=== PATIENT | female | born 1930 | race African-American/Black ===

== ENCOUNTER 2017-06-24 14:33 | Inpatient (IN) | payer BC ==
[2017-06-24] MEDS ORDERED: NS 0.9% 1000 ML* 1,000 ML IV ONE (15:33)
[2017-06-24 16:05] LABS: Hematocrit 36 % (35-47); Hemoglobin 12.1 g/dl (12.0-16.0); Mean Corpuscular HGB Conc 33 g/dl (31-36); Mean Corpuscular Hemoglobin 29 pg (27-31); Mean Corpuscular Volume 87 fL (80-97); Mean Platelet Volume 8 um3 (7.4-10.4); Red Blood Count 4.17 10^6/ul (4.0-5.4); Red Cell Distribution Width 13 % (10.5-15); White Blood Count 15.2 10^3/ul (3.5-10.8)
[2017-06-24 16:18] LABS: Albumin 3.7 g/dL (3.2-5.2); BUN/Creatinine Ratio 16.9 (8-20); C Reactive Protein 101.86 mg/L (< 5.00); Calcium 9.7 mg/dL (8.6-10.3); EGFR Non-African American 43.5 (>60); Globulin 3.7 g/dL (2-4); Magnesium 1.9 mg/dL (1.9-2.7); Potassium 4.1 mmol/L (3.5-5.0); Total Bilirubin 0.4 mg/dL (0.2-1.0); Total Protein 7.4 g/dL (6.4-8.9)
[2017-06-24 16:56] LABS: Urine Bacteria Absent (Absent); Urine Bilirubin Negative (Negative); Urine Glucose Negative (Negative); Urine Nitrite Negative (Negative)
[2017-06-24] MEDS ORDERED: Acetaminophen TAB* 325 MG PO PRN (18:41)
--- NOTE | 2017-06-24 18:52 | ED ---
Tobias Ball Alfonso, scribed for Alberto Gonzalez MD on 06/24/17 at 1625 . Abdominal Pain/Female - HPI Summary HPI Summary: This patient is an 86 year old F presenting from [facility] to [facility] with a chief complaint of RLQ abdominal pain since 6 days ago. She states the pain is currently resolved. The patient rates the current pain 0/10 in severity. Symptoms aggravated by nothing. Symptoms alleviated by spontaneous resolution. 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 FINDINGS CONSISTENT WITH ACUTE APPENDICITIS WITH POSSIBLE RUPTURE OF THE APPENDIX. 2. 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 MILDLY ENLARGED RETROPERITONEAL LYMPH NODE POSSIBLY METASTATIC. ONCE THE PATIENT IS CLINICALLY ABLE CONSIDER A CONTRAST-ENHANCED STUDY FOR FURTHER EVALUATION AND STAGING. - History of Current Complaint Chief Complaint: EDAbdPain Stated Complaint: ABD PAIN Hx Obtained From: Patient Onset/Duration: Sudden Onset, Lasting Days - 6, Still Present Timing: Constant Severity Initially: Moderate Severity Currently: None Pain Intensity: 0 Pain Scale Used: 0-10 Numeric Location: Discrete At: RLQ Aggravating Factor(s): Nothing Alleviating Factor(s): Spontaneous Resolution Allergies/Adverse Reactions: Allergies Allergy/AdvReac Type Severity Reaction Status Date / Time Iodinated Diagnostic Agents Allergy Hives Verified 06/24/17 11:11 Home Medications: Home Medications Benazepril HCl 20 mg PO BID 06/24/17 [History Confirmed 06/24/17] Hydrochlorothiazide TAB* [Hydrodiuril TAB*] 25 mg PO DAILY 06/24/17 [History Confirmed 06/24/17] Levothyroxine TAB* [Synthroid TAB*] 50 mcg PO DAILY 06/24/17 [History Confirmed 06/24/17] Metoprolol Succinate XL TAB* [Toprol XL TAB*] 50 mg PO DAILY 06/24/17 [History Confirmed 06/24/17] Simvastatin (NF) [Zocor (NF)] 40 mg PO DAILY 06/24/17 [History Confirmed ] PMH/Surg Hx/FS Hx/Imm Hx Cardiovascular History: Reports: Hx Hypercholesterolemia, Hx Hypertension Sensory History: Denies: Hx Deafness Opthamlomology History: Denies: Hx Legally Blind - Cancer History Hx Chemotherapy: No Hx Radiation Therapy: No - Surgical History Surgery Procedure, Year, and Place: hysterectomy,tonsilectomy Infectious Disease History: No Infectious Disease History: Denies: Traveled Outside the [place] in Last 30 Days - Family History Known Family History: Positive: Other - CHF - Social History Alcohol Use: None Hx Substance Use: No Substance Use Type: Reports: None Hx Tobacco Use: No Smoking Status (MU): Unknown if Ever Smoked Review of Systems Negative: Fever Positive: Abdominal Pain - RLQ All Other Systems Reviewed And Are Negative: Yes Physical Exam Triage Information Reviewed: Yes Vital Signs On Initial Exam: Initial Vitals Temp Pulse Resp BP Pulse Ox 98.3 F 101 18 148/53 97 06/24/17 14:34 06/24/17 14:34 06/24/17 14:34 06/24/17 14:34 06/24/17 14:34 Vital Signs Reviewed: Yes Appearance: Positive: Well-Appearing, No Pain Distress Skin: Positive: Warm, Skin Color Reflects Adequate Perfusion, Dry Head/Face: Positive: Normal Head/Face Inspection Eyes: Positive: Normal ENT: Positive: Normal ENT inspection Neck: Positive: Supple, Nontender Respiratory/Lung Sounds: Positive: Clear to Auscultation, Breath Sounds Present Cardiovascular: Positive: RRR Abdomen Description: Positive: Soft, Other: - RLQ tenderness moderate Bowel Sounds: Positive: Present Musculoskeletal: Positive: Normal Neurological: Positive: Normal, Sensory/Motor Intact, Alert, Oriented to Person Place, Time, CN Intact II-III Psychiatric: Positive: Affect/Mood Appropriate Diagnostics - Vital Signs Vital Signs Temp Pulse Resp BP Pulse Ox 06/24/17 15:15 98.4 F 92 16 136/75 97 06/24/17 14:34 98.3 F 101 18 148/53 97 - Laboratory Lab Results: Lab Results 06/24/17 06/24/17 06/24/17 Range/Units 15:55 15:55 15:55 WBC (3.5-10.8) 10^3/ul RBC (4.0-5.4) 10^6/ul Hgb (12.0-16.0) g/dl Hct (35-47) % MCV (80-97) fL MCH (27-31) pg MCHC (31-36) g/dl RDW (10.5-15) % Plt Count (150-450) 10^3/ul MPV (7.4-10.4) um3 Neut % (Auto) (38-83) % Lymph % (Auto) (25-47) % [place] % (Auto) (1-9) % Eos % (Auto) (0-6) % Baso % (Auto) (0-2) % Absolute Neuts (auto) (1.5-7.7) 10^3/ul Absolute Lymphs (auto) (1.0-4.8) 10^3/ul Absolute Monos (auto) (0-0.8) 10^3/ul Absolute Eos (auto) (0-0.6) 10^3/ul Absolute Basos (auto) (0-0.2) 10^3/ul Absolute Nucleated RBC 10^3/ul Nucleated RBC % INR (Anticoag Therapy) 1.14 H (0.89-1.11) Sodium 130 L (133-145) mmol/L Potassium 4.1 (3.5-5.0) mmol/L Chloride 94 L (101-111) mmol/L Carbon Dioxide 26 (22-32) mmol/L Anion Gap 10 (2-11) mmol/L BUN 20 (6-24) mg/dL Creatinine 1.18 H (0.51-0.95) mg/dL Est GFR ( Amer) 56.0 (>60) Est GFR (Non-Af Amer) 43.5 (>60) BUN/Creatinine Ratio 16.9 (8-20) Glucose 124 H (70-100) mg/dL Lactic Acid (0.5-2.0) mmol/L Calcium 9.7 (8.6-10.3) mg/dL Magnesium 1.9 (1.9-2.7) mg/dL Total Bilirubin 0.40 (0.2-1.0) mg/dL AST 44 H (13-39) U/L ALT 67 H (7-52) U/L Alkaline Phosphatase 102 (34-104) U/L Total Creatine Kinase 44 (10-223) U/L Troponin I Pending C-Reactive Protein 101.86 H (< 5.00) mg/L Total Protein 7.4 (6.4-8.9) g/dL Albumin 3.7 (3.2-5.2) g/dL Globulin 3.7 (2-4) g/dL Albumin/Globulin Ratio 1.0 (1-3) Amylase 59 (29-103) U/L Lipase 57 (11.0-82.0) U/L Blood Type Pending Antibody Screen Pending 06/24/17 06/24/17 Range/Units 15:55 15:55 WBC 15.2 H (3.5-10.8) 10^3/ul RBC 4.17 (4.0-5.4) 10^6/ul Hgb 12.1 (12.0-16.0) g/dl Hct 36 (35-47) % MCV 87 (80-97) fL MCH 29 (27-31) pg MCHC 33 (31-36) g/dl RDW 13 (10.5-15) % Plt Count 291 (150-450) 10^3/ul MPV 8 (7.4-10.4) um3 Neut % (Auto) 82.6 (38-83) % Lymph % (Auto) 9.9 L (25-47) % [place] % (Auto) 6.7 (1-9) % Eos % (Auto) 0.2 (0-6) % Baso % (Auto) 0.6 (0-2) % Absolute Neuts (auto) 12.6 H (1.5-7.7) 10^3/ul Absolute Lymphs (auto) 1.5 (1.0-4.8) 10^3/ul Absolute Monos (auto) 1.0 H (0-0.8) 10^3/ul Absolute Eos (auto) 0 (0-0.6) 10^3/ul Absolute Basos (auto) 0.1 (0-0.2) 10^3/ul Absolute Nucleated RBC 0 10^3/ul Nucleated RBC % 0 INR (Anticoag Therapy) (0.89-1.11) Sodium (133-145) mmol/L Potassium (3.5-5.0) mmol/L Chloride (101-111) mmol/L Carbon Dioxide (22-32) mmol/L Anion Gap (2-11) mmol/L BUN (6-24) mg/dL Creatinine (0.51-0.95) mg/dL Est GFR ( Amer) (>60) Est GFR (Non-Af Amer) (>60) BUN/Creatinine Ratio (8-20) Glucose (70-100) mg/dL Lactic Acid 0.9 (0.5-2.0) mmol/L Calcium (8.6-10.3) mg/dL Magnesium (1.9-2.7) mg/dL Total Bilirubin (0.2-1.0) mg/dL AST (13-39) U/L ALT (7-52) U/L Alkaline Phosphatase (34-104) U/L Total Creatine Kinase (10-223) U/L Troponin I C-Reactive Protein (< 5.00) mg/L Total Protein (6.4-8.9) g/dL Albumin (3.2-5.2) g/dL Globulin (2-4) g/dL Albumin/Globulin Ratio (1-3) Amylase (29-103) U/L Lipase (11.0-82.0) U/L Blood Type Antibody Screen Result Diagrams: 06/24/17 15:55 06/24/17 15:55 Lab Statement: Any lab studies that have been ordered have been reviewed, and results considered in the medical decision making process. - EKG 1624 Cardiac Rate: NL - bpm 72 EKG Rhythm: Sinus Rhythm EKG Interpretation: 1ST DEGREE BLOCK. Abdominal Pain Fem Course/Dx - Course Course Of Treatment: Ms. Worrell was found by her PMD to have a ruptured appendicitis. She was sent in and was found to be very stable. Labs were obtained, she was given IV Zosyn and Surgery was consulted. - Diagnoses Provider Diagnoses: Ruptured appendicitis - Provider Notifications Discussed Care Of Patient With: Raul Portillo Time Discussed With Above Provider: 15:50 Instructed by Provider To: Other - Consulted Dr. Portillo (surgeon) whose PA will see the pt in the ED. Consulted Dr. Mandel (hospitalist) at 1717 who agrees to admit the patient. Discharge - Discharge Plan Condition: Stable Disposition: ADMITTED TO [facility] documentation as recorded by the Tobias johns Alfonso accurately reflects the service I personally performed and the decisions made by , Alberto Gonzalez MD.
[2017-06-24] MEDS: D5NS 0.9% 1000 ML BAG* 1,000 ML IV SCH (20:07)
[2017-06-24] MEDS ORDERED: Lisinopril TAB* 10 MG PO SCH (21:00)
[2017-06-24] MEDS: MELOXICAM 7.5 MG PO PRN (22:32)
[2017-06-24] MEDS: SYSTANE EYE LEFT EYE SCH (22:33)
[2017-06-24] MEDS: BENAZEPRIL 20 MG PO SCH (22:33)
[2017-06-25] MEDS: LEVOTHYROXINE 50 MCG PO SCH (06:06)
[2017-06-25] MEDS: D5NS 0.9% 1000 ML BAG* 1,000 ML IV SCH ×2 (08:27→21:57)
[2017-06-25] MEDS: METOPROLOL SUCCINATE 50 MG PO SCH (09:18)
[2017-06-25] MEDS: BENAZEPRIL 20 MG PO SCH ×2 (09:18→20:43)
[2017-06-25] MEDS: SYSTANE EYE LEFT EYE SCH ×5 (09:19→20:44)
[2017-06-25 10:44] LABS: Hematocrit 30 % (35-47); Mean Corpuscular HGB Conc 33 g/dl (31-36); Mean Corpuscular Hemoglobin 29 pg (27-31); Mean Corpuscular Volume 87 fL (80-97); Mean Platelet Volume 8 um3 (7.4-10.4); Red Blood Count 3.45 10^6/ul (4.0-5.4); Red Cell Distribution Width 13 % (10.5-15); White Blood Count 13.3 10^3/ul (3.5-10.8)
[2017-06-25] MEDS: MELOXICAM 7.5 MG PO PRN (11:04)
[2017-06-26] MEDS: LEVOTHYROXINE 50 MCG PO SCH (06:04)
--- NOTE | 2017-06-26 07:48 | PN ---
Progress Note - Progress Note Date of Service: 06/26/17 Note: Surgery Ms. Worrell reports she had a large BM this morning. She feels better overall. Vital Signs 06/25/17 06/25/17 06/25/17 08:00 12:37 15:42 Temperature 99.1 F 99.1 F Pulse Rate 72 80 Respiratory 15 15 20 Rate Blood Pressure 139/56 141/49 (mmHg) O2 Sat by Pulse 99 98 Oximetry 06/25/17 06/25/17 06/25/17 16:12 19:15 19:23 Temperature 99.1 F 99.3 F Pulse Rate 80 96 Respiratory 20 20 16 Rate Blood Pressure 160/62 150/54 (mmHg) O2 Sat by Pulse 98 98 Oximetry 06/26/17 06/26/17 00:01 03:54 Temperature 100.0 F 99.4 F Pulse Rate 77 82 Respiratory 16 16 Rate Blood Pressure 123/43 120/33 (mmHg) O2 Sat by Pulse 95 96 Oximetry Abd: protruberant, non-tender, no masses appreciated. Intake & Output 06/25/17 06/26/17 06/26/17 22:59 06:59 14:59 Intake Total 1576 205 Output Total 450 450 Balance 1126 -245 Intake: IV Fluids 826 D5W NS (0.9%) 826 IVPB 100 105 Oral 650 100 Output: Urine 450 450 Other: # Bowel Movements 0 Laboratory Results - last 24 hr 06/25/17 09:34 WBC 13.3 H RBC 3.45 L Hgb 10.0 L Hct 30 L MCV 87 MCH 29 MCHC 33 RDW 13 Plt Count 260 MPV 8 Neut % (Auto) 74.8 Lymph % (Auto) 14.9 L [place] % (Auto) 9.3 H Eos % (Auto) 0.5 Baso % (Auto) 0.5 Absolute Neuts (auto) 9.9 H Absolute Lymphs (auto) 2.0 Absolute Monos (auto) 1.2 H Absolute Eos (auto) 0.1 Absolute Basos (auto) 0.1 Absolute Nucleated RBC 0.01 Nucleated RBC % 0.1 A/P: Clinically improving; await labs this morning, but I anticipate continued abx will be appropirate.
[2017-06-26 08:40] LABS: Hematocrit 29 % (35-47); Hemoglobin 9.4 g/dl (12.0-16.0); Mean Corpuscular HGB Conc 33 g/dl (31-36); Mean Corpuscular Hemoglobin 29 pg (27-31); Mean Corpuscular Volume 87 fL (80-97); Mean Platelet Volume 8 um3 (7.4-10.4); Red Blood Count 3.29 10^6/ul (4.0-5.4); Red Cell Distribution Width 14 % (10.5-15); White Blood Count 13.4 10^3/ul (3.5-10.8)
[2017-06-26] MEDS: BENAZEPRIL 20 MG PO SCH ×2 (09:44→20:30)
[2017-06-26] MEDS: SYSTANE EYE LEFT EYE SCH ×4 (09:44→20:30)
[2017-06-26] MEDS: METOPROLOL SUCCINATE 50 MG PO SCH (09:54)
[2017-06-26 11:22] LABS: Albumin 2.8 g/dL (3.2-5.2); BUN/Creatinine Ratio 7.3 (8-20); C Reactive Protein 68.43 mg/L (< 5.00); Calcium 8.2 mg/dL (8.6-10.3); EGFR African American 60.7 (>60); EGFR Non-African American 47.2 (>60); Globulin 2.3 g/dL (2-4); Potassium 3.7 mmol/L (3.5-5.0); Total Bilirubin 0.3 mg/dL (0.2-1.0); Total Protein 5.1 g/dL (6.4-8.9)
[2017-06-26] MEDS: D5NS 0.9% 1000 ML BAG* 1,000 ML IV SCH (12:33)
[2017-06-26] MEDS: MELOXICAM 7.5 MG PO PRN (13:12)
--- NOTE | 2017-06-27 01:36 | HP ---
CC: Dr. Luiza Casarez, physician at Dr. Genia Pruitt's office * ADMISSION HISTORY AND PHYSICAL: DATE OF ADMISSION: 06/24/17 ATTENDING PHYSICIAN: Dr. Raul Portillo * (DICTATED BY CHANTELL DYER) CHIEF COMPLAINT: Possible ruptured appendicitis. HISTORY OF PRESENT ILLNESS: This is an 86-year-old female who began experiencing abdominal pain last Tuesday and Tuesday. She describes her pain in the right lower quadrant and associated initially with watery diarrhea. Pain seemed to move upward and was associated with anorexia though she denies nausea, vomiting, fever, or chills. She had not had any prior similar episodes. She had not had any significant symptoms. She felt that her pain improved significantly on Tuesday and then since that time, she has mostly felt gassy. She presented to her primary care provider on 06/23/17. Lab work was apparently done and she was subsequently sent for a CT scan of the abdomen and pelvis, which was performed this morning at [facility]. Based on those findings (see below) the patient was advised to come to the emergency department. At the present time she denies significant pain. She feels a bit gassy and has been limiting her diet. She otherwise has no additional complaints. She has not had a bowel movement for a few days. She has been passing flatus. She has had previous EGD and colonoscopy in 2013 with findings including gastric erosions and diverticulosis respectively. She did not have any history of diverticulitis. Her only previous abdominal surgery was a TIGIST with BSO for benign disease many years ago. PAST MEDICAL HISTORY: Hypertension, hyperlipidemia, hypothyroidism. 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 She denies history of heart disease, diabetes, or cancer. PAST SURGICAL HISTORY: TIGIST with BSO, tonsillectomy remotely. CURRENT MEDICATIONS: 1. Levothyroxine 50 mcg once daily. 2. Benazepril 20 mg b.i.d. 3. Metoprolol extended release 50 mg q. day. 4. Systane eye drops 1 drop each eye once daily. 5. Simvastatin 40 mg q. day. 6. Hydrochlorothiazide 25 mg q. day. 7. Meloxicam 7.5 mg q. day p.r.n. for arthritis pain. DRUG ALLERGIES: IV CONTRAST (flushing). FAMILY HISTORY: Noncontributory in terms of anesthesia problems, bleeding, or clotting disorders. SOCIAL HISTORY: The patient lives alone in her own apartment. She moved here from the [place] after [place] to be near her family. She is fairly active and participates in S[employer] 3 days a week and other days alternates between weight training and lito chi. She quit smoking in the early 80s. She drinks on an average 1 glass of wine per day. REVIEW OF SYSTEMS: General: No recent constitutional symptoms other than per the HPI, her weight has been stable. Cardiovascular: No history of chest pain , palpitations, [place], or angina. Respiratory: No history of asthma, chronic cough, or shortness of breath. GI: As above her HPI, no additions. : No symptoms of hematuria or increased frequency. Endocrine: She is on thyroid replacement. PHYSICAL EXAMINATION GENERAL: Well-nourished, well-developed, elderly woman, in no acute distress. VITAL SIGNS: Height 5 feet 6 inches, weight 137 pounds, temperature 98.3, blood pressure 148/53, pulse 101, respirations 18, and room air saturation 97%. HEENT: She has ptosis of the left eyelid and left eye shows corneal opacity. Right eye is reactive to light, EOMs intact. No conjunctival pallor. Oropharynx, mucous membranes are dry. No intraoral lesions. NECK: No lymphadenopathy, thyromegaly, or masses. LUNGS: Clear to auscultation with a few crackles at the left lung base. HEART: Regular rate and rhythm. No murmur appreciated. ABDOMEN: Bowel sounds present, soft, negligible tenderness in the right lower quadrant. No palpable masses or organomegaly. EXTREMITIES: No edema. GENITALIA: Not done. RECTAL: Not done. BACK: No spinous process or CVA tenderness. NEUROLOGIC: Grossly intact. SKIN: Warm and dry. No suspicious rashes or lesions noted. DIAGNOSTIC STUDIES/LAB DATA: Of note, white blood cell count 15,200, hemoglobin 12.1. Electrolytes: Sodium 130, potassium 4.1, chloride 94, glucose 124. AST 44, ALT 67. CRP 102 (down from 128 yesterday). Amylase and lipase were normal. TSH was normal. She has a normal lactic acid at 0.9. Urinalysis shows 1+ blood, 3+ leukocyte esterase. CT scan of the abdomen and pelvis shows a markedly distended appendix with an ill- defined wall and an appendicolith with stranding in the surrounding mesenteric fat as well as free fluid. In addition, there is a finding of a 10.2 x 10.7 x 7.1 cm right renal mass, which appears suspicious for carcinoma. IMPRESSION: 1. Likely "missed" appendicitis. 2. Right renal mass concerning for carcinoma. PLAN: She was seen and examined by Dr. Portillo. She will be admitted for IV antibiotics with no immediate plan for appendectomy. In fact, she was informed that appendectomy may not be required at any point in time if she continues to do well clinically with conservative management. She will also need consults from Urology and/or Oncology and those will be arranged though she may be able to complete further workup as an outpatient. CHANTELL DYER [id number]/TUSHAR #: [id number] TYRESE
[2017-06-27] MEDS: D5NS 0.9% 1000 ML BAG* 1,000 ML IV SCH ×2 (04:58→19:19)
[2017-06-27] MEDS: LEVOTHYROXINE 50 MCG PO SCH (05:50)
[2017-06-27] MEDS: BENAZEPRIL 20 MG PO SCH ×2 (08:51→19:43)
[2017-06-27] MEDS: SYSTANE EYE LEFT EYE SCH ×4 (08:51→22:51)
[2017-06-27] MEDS: METOPROLOL SUCCINATE 50 MG PO SCH (08:51)
--- NOTE | 2017-06-27 11:39 | RAD ---
Indication: Renal cell cancer. CT of the chest performed without IV contrast. No prior study is available for comparison. Coronal and sagittal reconstructed images were obtained. Inferior thyroid lobes demonstrates calcified nodule in the lower pole of the left lobe as well as in the lower pole of the right lobe. Small 3 to 5 mm pretracheal, AP window lymph nodes are noted. The heart demonstrates coronary artery calcifications without evidence of pericardial effusion. The trachea and major bronchi appear patent. The lung naik demonstrate small pleural effusions. There is nonspecific triangular-shaped density likely representing some atelectasis measuring 4 mm in the right middle lobe. Scarring is noted in the superior segment of the left lower lobe. No focal nodules are noted. The visualized abdominal organs demonstrate no definite focal lesions were visualized of the liver spleen and pancreas although they are not visualized entirely. No obvious bony abnormalities are identified. IMPRESSION: Nonspecific 4 mm right middle lobe triangle shaped density as well as some scarring in the superior segment of left lower lobe. Small bilateral pleural effusions are noted.
[2017-06-27 12:40] LABS: Total Iron Binding Capacity 213 mcg/dL (250-450); Transferrin 152 mg/dL (203-362)
[2017-06-27 12:43] LABS: Iron < 15 ug/dL (50-212)
[2017-06-27 12:54] LABS: Ferritin 186.3 ng/mL (11-307)
[2017-06-27 13:00] LABS: Vitamin B12 239 pg/mL (180-914)
--- NOTE | 2017-06-27 13:14 | CONS ---
CC: Dr. Casarez * CONSULTATION REPORT: DATE OF CONSULT: REFERRING PHYSICIAN: Dr. Portillo. PRIMARY CARE PHYSICIAN: Dr. Casarez. REASON FOR CONSULT: Renal mass. HISTORY OF PRESENT ILLNESS: This is an 86-year-old female who came in after she said she felt very, "blah" for approximately 1 week. She was really not eating anything and she was having on and off nausea and vomiting. Two days prior to admission, she had right lower quadrant pain associated with diarrhea. She denies any fevers or chills. She reports up until a week ago, she had been feeling quite well. Energy has been good, she exercises 3 times a week including Amy and lito chi. She had no prior episodes of pain. She denies any urinary symptoms, no hematuria. No change in either urine or bowel patterns up until this acute episode. She reports her weight has been stable though her appetite has been low for a week. On presentation to the emergency room, she had a CT scan of the abdomen and pelvis. The scan was notable for a distended appendix with an ill-defined wall, suggestive of a walled-off appendix. She was also noted to have a 10 x 10 x 7 cm renal mass on the right side. It was a noncontrast study. There was no clear regional lymphadenopathy. On the liver windows for the noncontrast study of the liver is clear and there are no lesions in the lung bases. Visualizing the bone windows, there is mild arthritis but no lytic or blastic lesions in the spine or pelvis. She is being followed by surgery and is being treated conservatively with IV antibiotics, to avoid intervention for the appendicitis. Medical Oncology consulted regarding the renal mass. PAST MEDICAL HISTORY: 1. Hypertension. 2. Hyperlipidemia. 3. Hypothyroidism. 4. 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 5. History of gastric erosions. 6. Diverticulosis. 7. Osteoarthritis. PAST SURGICAL HISTORY: TIGIST and BSO as well as history of tonsillectomy. MEDICATIONS: 1. Levothyroxine 50 mcg daily. 2. Benazepril 20 mg b.i.d. 3. Metoprolol extended release 50 mg a day. 4. Eye drops. 5. Simvastatin 40 mg a day. 6. Hydrochlorothiazide 25 mg a day. 7. Meloxicam 7.5 daily p.r.n. arthritis. ALLERGIES: IV CONTRAST causes flushing. FAMILY HISTORY: Heart disease and diabetes, but no cancers in the family. SOCIAL HISTORY: She lives alone. She has no children, but does have a support network in her nieces and nephews. Moved from [place] after [place] to be near her extended family. Remote history of smoking and drinks a glass of wine per day. REVIEW OF SYSTEMS: As noted above and otherwise 14-point review is negative. PHYSICAL EXAM: Temperature 98.8, T-max 100.6, BP 131/46, pulse 72, respirations 16, O2 sat 96%. HEENT: Trauma, left eye, and scarring. Right eye , pupil equal, round, reactive to light. Nodes: No supraclavicular, axillary, or inguinal lymphadenopathy. Lungs: Clear to auscultation. Heart: Regular rate and rhythm. S1, S2. No murmurs, rubs, or gallops. Abdomen: Distended. Mild left lower quadrant tenderness, good bowel sounds, no masses. No CVA tenderness. Extremities: Warm to the touch with good pulses. Skin: No overt lesions. Neurologic: Grossly nonfocal. Alert and oriented x3. DIAGNOSTIC STUDIES/LAB DATA: Hemoglobin 9.4, down from 12 on admission, likely secondary to hydration. MCV is 87, white count 13.4, platelets 258. Creatinine is 1.1, which is near her baseline, had been close to 1.5 on admission. Calcium is 8.2 with an albumin of 2.8, normal LFTs. UA shows +2 white blood cells, +[address] scan as noted above. ASSESSMENT AND PLAN: An 86-year-old female with extensive past medical history , but high functional status, presents with subacute appendicitis with abscess and a right renal mass. Highly suspicious for occult renal cell carcinoma. The renal mass has likely been there for some time as evidenced by size and lack of pain. Priority will be addressing the appendicitis before definitive treatment for her renal cell cancer. 1. Renal cell cancer. Treatment would be the standard approach. She has barrier to surgery at this time including the acute appendicitis, low albumin. I am hopeful that nutritional deficiency is related to her GI process and that she recovers fully with antibiotics. After the appendicitis has passed, she needs to be evaluated for a right nephrectomy. We discussed being seen by Dr. Thompson in [place] as well as the option for surgeons at [facility]. She is open to going out of town for surgery. 2. Chronic renal insufficiency. She has reduced creatinine clearance. We will need to check differential creatinine clearance prior to surgery to determine her postop renal function. I suspect the right kidney is minimally functional at this time. 3. Anemia. Could be secondary to iron deficiency or chronic disease. We will check iron studies and B12 as well as a serum transferrin receptor. 4. I would like to complete staging for renal cell cancer with a noncontrast CT of the chest. We will continue to follow during her hospitalization and then manage referral to Urologic Oncology after discharge. [id number]/[facility] #: [id number] TYRESE
[2017-06-27] MEDS: Loperamide CAP* 2 MG PO PRN ×2 (17:56→22:59)
[2017-06-27] MEDS: MELOXICAM 7.5 MG PO PRN (22:58)
[2017-06-28] MEDS: SYSTANE EYE LEFT EYE SCH ×2 (01:51→08:09)
[2017-06-28 05:51] LABS: Hematocrit 28 % (35-47); Hemoglobin 9.2 g/dl (12.0-16.0); Mean Corpuscular HGB Conc 34 g/dl (31-36); Mean Corpuscular Hemoglobin 29 pg (27-31); Mean Corpuscular Volume 88 fL (80-97); Mean Platelet Volume 8 um3 (7.4-10.4); Red Blood Count 3.13 10^6/ul (4.0-5.4); Red Cell Distribution Width 14 % (10.5-15)
[2017-06-28] MEDS: LEVOTHYROXINE 50 MCG PO SCH ×2 (06:00→06:04)
[2017-06-28 06:05] LABS: BUN/Creatinine Ratio 4.9 (8-20); C Reactive Protein 77.24 mg/L (< 5.00); Calcium 8.2 mg/dL (8.6-10.3); EGFR African American 66.2 (>60); EGFR Non-African American 51.5 (>60); Potassium 3.3 mmol/L (3.5-5.0)
[2017-06-28] MEDS: D5NS 0.9% 1000 ML BAG* 1,000 ML IV SCH ×2 (08:08→22:31)
[2017-06-28] MEDS: BENAZEPRIL 20 MG PO SCH ×2 (08:08→22:07)
[2017-06-28] MEDS: METOPROLOL SUCCINATE 50 MG PO SCH (09:56)
[2017-06-28] MEDS ORDERED: Iodixanol* (CONTRAST) 320 MG/ML 100 ML SDV IV ONE (10:44)
--- NOTE | 2017-06-28 12:24 | RAD ---
CLINICAL HISTORY: Follow-up of appendicitis, abscess COMPARISON: June 24, 2017 TECHNIQUE: Multiple contiguous axial CT scans were obtained of the abdomen and pelvis, without intravenous contrast enhancement. Coronal and sagittal multiplanar reformations are submitted for review. According to the technologist notes, the patient deferred intravenous contrast administration. FINDINGS: The study is limited by the lack of intravenous contrast. This limits evaluation of the solid organs and vasculature. LUNG BASES: There are trace bilateral pleural effusions. LIVER: The liver is normal in shape, size, contour, and attenuation. BILE DUCTS: There is no intrahepatic or extrahepatic biliary dilatation. GALLBLADDER: The gallbladder is normal, without pericholecystic inflammatory change. PANCREAS: The pancreas is normal, without mass or ductal dilatation. SPLEEN: Normal in size and appearance. UPPER GI TRACT: Evaluation of the gastrointestinal tract is limited by incomplete gastric distention. The upper GI tract is unremarkable. SMALL BOWEL AND MESENTERY: The small bowel is normal in contour, course, and caliber. There is no obstruction or dilatation. COLON: There is diverticulosis of the sigmoid colon. Again noted is stranding of the pericolonic fat in the right lower quadrant. Heterogeneous low-attenuation lesion of the right lower quadrant measuring 3.8 x 3.7 cm x 6.1 cm in size corresponding to the area of inflammatory change noted on the previous examination, likely consistent with ruptured appendicitis. There has been interval development of gas density within this lesion. This is also increased in size. Evaluation is limited by lack of intravenous contrast. ADRENALS: Normal bilaterally. KIDNEYS: Again noted is lobulated mass of the lower pole of the right kidney similar to the previous examination. BLADDER: The bladder is smooth in contour. PELVIC ORGANS: The pelvic organs are not visualized. AORTA: There is calcific atherosclerotic disease of the abdominal aorta and its branches, without aneurysmal dilatation IVC: Unremarkable LYMPH NODES: Again noted are prominent retroperitoneal lymph nodes ABDOMINAL WALL: There is no evidence for abdominal wall hernia. BONES AND SOFT TISSUES: Degenerative changes are noted of the spine OTHER: None IMPRESSION: 1. AGAIN NOTED IS A MASS OF THE RIGHT LOWER QUADRANT, LIKELY INFLAMMATORY AND RELATED TO THE GIVEN HISTORY OF RUPTURED ACUTE APPENDICITIS. THIS HAS INCREASED IN SIZE COMPARED TO THE 2016 EXAMINATION, WITH A SMALL AMOUNT OF GAS DENSITY WITHIN THE LESION, SUGGESTIVE OF A MIXED AREA OF PHLEGMON AND ABSCESS, THOUGH EVALUATION IS LIMITED BY LACK OF INTRAVENOUS CONTRAST. 2. AGAIN NOTED IS LEVEL RELATED MASS OF THE RIGHT KIDNEY. 3. DIVERTICULOSIS OF THE COLON. 4. SMALL BILATERAL PLEURAL EFFUSIONS. 5. ATHEROSCLEROSIS.
[2017-06-28] MEDS: Potassium Chlor TAB* 10 MEQ TAB.ER PO SCH ×2 (12:41→22:03)
--- NOTE | 2017-06-28 13:34 | PN ---
Progress Note - Progress Note Date of Service: 06/28/17 Note: Surgery Progress: S: Zosyn day #5. Has had some intermittent passing nausea, but no vomiting, and in fact is tolerating diet fairly well. She had some diarrhea yesterday which has since abated after Imodium. (C diff was neg). She refused both po and IV contrast for her repeat CT today. Current Medications Acetaminophen (Tylenol Tab*) 650 mg PO Q4H PRN PRN Reason: mild pain or fever Dextrose/Sodium Chloride (D5ns 0.9% 1000 Ml Bag*) 1,000 mls @ 75 mls/hr IV PER RATE [facility] Last Admin: 06/28/17 08:08 Dose: 75 mls/hr Piperacillin Sod/Tazobactam (Sod 3.375 gm/ Sodium Chloride) 100 mls @ 25 mls/ hr IVPB Q8H [facility] Last Admin: 06/28/17 08:10 Dose: 25 mls/hr Levothyroxine Sodium (Synthroid Tab*) 50 mcg PO DAILY@0600 [facility] Last Admin: 06/28/17 06:04 Dose: 50 mcg Loperamide HCl (Imodium Cap*) 2 mg PO Q4H PRN PRN Reason: DIARRHEA Last Admin: 06/27/17 22:59 Dose: 2 mg Meloxicam (Mobic(Nf)) 7.5 mg PO DAILY PRN PRN Reason: PAIN Last Admin: 06/27/17 22:58 Dose: 7.5 mg Metoprolol Succinate (Toprol Xl Tab*) 50 mg PO DAILY [facility] Last Admin: 06/28/17 09:56 Dose: 50 mg Pto: Benazepril 20mg (Tablet) 1 dose PO BID [facility] Last Admin: 06/28/17 08:08 Dose: 1 dose Pto:Systane Eye (Drops) 1 admin BOTH EYES DAILY PRN PRN Reason: dryness Potassium Chloride (Klor Con Er Tab*) 10 meq PO BID [facility] Last Admin: 06/28/17 12:41 Dose: 10 meq O: Vital Signs - 8 hr 06/28/17 06/28/17 07:43 12:01 Temperature 99.0 F 98.4 F Pulse Rate 78 58 Respiratory 16 16 Rate Blood Pressure 154/55 149/51 (mmHg) O2 Sat by Pulse 93 98 Oximetry Intake and Output Last 24 Hours 06/26/17 06/27/17 06/28/17 06/29/17 06:59 06:59 06:59 06:59 Intake Total 4392 4504 3556 490 Output Total 8588 935 1228 400 Balance 2917 4154 2556 90 Weight 137 lb Intake: IV Fluids 3097 3145 2338 D5W NS (0.9%) 1999 997 987 Zosyn 100 212 IVPB 205 429 113 Zosyn 219 Oral 1953 770 3069 490 Output: Urine 8155 975 1723 400 Other: # Bowel Movements 0 0 3 Estimated Stool Amount Medium Small # Voids 1 Gen: NAD Heart: reg Lungs: clear Abd: soft; no sig tenderness; no mass appreciated Labs: Laboratory Tests 06/28/17 06/28/17 05:39 05:39 WBC 14.0 H Hgb 9.2 L Potassium 3.3 L Creatinine 1.02 H C-Reactive Protein 77.24 H A: "missed" appendicitis w/ overall improvement; hypokalemia; still w/ moderate leukocystosis and elevated CRP P: repeat CT (patient refuses po contrast and upon arrival in the CT dept, she also refused IV contrast); cont IV abx pend results of CT
[2017-06-28] MEDS: Loperamide CAP* 2 MG PO PRN (14:14)
[2017-06-28] MEDS: SYSTANE EYE BOTH EYES PRN (22:06)
[2017-06-29] MEDS: Loperamide CAP* 2 MG PO PRN ×2 (05:36→11:11)
[2017-06-29] MEDS: LEVOTHYROXINE 50 MCG PO SCH (05:40)
[2017-06-29] MEDS: BENAZEPRIL 20 MG PO SCH (09:32)
[2017-06-29] MEDS: SYSTANE EYE BOTH EYES PRN (09:32)
[2017-06-29] MEDS: METOPROLOL SUCCINATE 50 MG PO SCH (09:33)
[2017-06-29] MEDS: Potassium Chlor TAB* 10 MEQ TAB.ER PO SCH (09:33)
--- NOTE | 2017-06-29 12:40 | PN ---
Progress Note - Progress Note Date of Service: 06/29/17 SOAP: Subjective: Reports doing much better, seen and examined earlier by Dr. Portillo. CT reviewed , no indication for abscess drainage. Denies fever or chills. Tolerating diet. Objective: Awake and alert, in NAD VSS, afebrile Abdomen soft, NT, ND. Assessment: An 86 y/o female with "missed" perforated appendicitis, doing well on PO Abx Plan: D/C to home this afternoon on PO Augmentin F/U with Dr. Portillo next week.
[2017-06-29 13:34] VITALS: BP 146/51
--- NOTE | 2017-06-30 02:00 | DS ---
CC: Dr. Genia Pruitt; Dr. Javed Varela * DISCHARGE SUMMARY: DATE OF ADMISSION: 06/25/17 DATE OF DISCHARGE: 06/29/17 PATIENT OF: Dr. Raul Portillo * (DICTATED BY CHANTELL OLIVIA) ADMISSION DIAGNOSES: 1. Abdominal pain. 2. Ruptured appendicitis. 3. Right renal mass. DISCHARGE DIAGNOSES: 1. Abdominal pain. 2. Ruptured appendicitis. 3. Right renal mass. ADMITTING PHYSICIAN: Raul Portillo MD CONSULTATION: Javed Varela MD PROCEDURE: None. HISTORY OF PRESENT ILLNESS: Ms. Worrell is a pleasant 86-year-old female, who presented to the emergency room back on 06/24/17 with complaints of worsening abdominal pain. Patient described her pain as being in the right lower quadrant, initially associated with watery diarrhea for which she has been taken Imodium and seems to have good relief. Her pain has worsened over past weekend and it seemed to be moving upwards, associated with anorexia, but she denies any nausea or vomiting. She has never had any prior episodes of abdominal pain in the past. Patient was evaluated in the emergency room and her laboratory workup was done as well as the CT scan of the abdomen and pelvis that was performed at [facility] earlier this morning with a finding of markedly dilated appendix as well as right renal mass. Patient also had additional complaints of not having bowel movement for a few days prior to that, but has been passing flatus. Her last endoscopy was done back in 2013 with findings including gastric erosion and diverticulosis as well. She was evaluated in emergency room and noted to have a white count elevated with a value of 15,[address] scan of the abdomen and pelvis that showed markedly distended appendix with ill-defined wall and stranding in the surrounding mesoappendix fat as well as free fluid. Given her age and finding of the CT scan, patient was admitted for antibiotic coverage prophylactically and to discuss any surgical indications. HOSPITAL COURSE: Patient was admitted on 06/24/17 under surgical services and she started prophylactically on Zosyn and was kept n.p.o. on the first night. She did relatively well with only mild discomfort in the right lower quadrant for which we started feeding her with clear liquids on the following day from admission. She continued to improve and she was afebrile. Repeated CT scan was performed on 06/28/17 that showed no change in the right lower quadrant collection adjacent to the presumed ruptured appendix. Also, Heme/Onc was consulted regarding her right renal mass that was suspicious for carcinoma. Patient continued to improve and again the CT scan done on the revealed no drainable fluid collection for which she was continued on IV antibiotic for another day and eventually converted to p.o. antibiotic in anticipation for discharge. On discharge day, patient continued to do well. She was afebrile and she was ambulatory out of bed, moving her bowel and tolerating soft diet. She will be discharged on oral Augmentin and I will continue all her normal medications and to be followed up by Dr. Portillo as an outpatient at [facility]. DISCHARGE MEDICATIONS: Her discharge medications include: 1. Augmentin 875 mg p.o. b.i.d. for 10 days. 2. Benazepril 20 mg p.o. b.i.d. 3. [place] 5/325 one tablet q.4 hours p.r.n. for pain. 4. Hydrochlorothiazide 25 mg p.o. daily. 5. Synthroid 50 mcg p.o. daily. 6. Metoprolol 50 mg p.o. daily. 7. Zocor 40 mg p.o. daily. PROBLEM LIST: 1. Abdominal pain. 2. Right renal mass. 3. Ruptured appendicitis, well contained, not requiring any surgical intervention and will be managed conservatively with antibiotics. CHANTELL OLIVIA [id number]/[facility] #: [id number] [facility]
--- NOTE | 2017-06-30 04:12 | DS ---
CC: Dr. Luiza Casarez; Dr. Javed Varela * DISCHARGE SUMMARY: DATE OF ADMISSION: 06/25/17 DATE OF DISCHARGE: 06/29/17 PRINCIPAL ADMITTING DIAGNOSIS: Missed appendicitis. SECONDARY DIAGNOSES: 1. Renal cell carcinoma. 2. Hypertension. 3. Hyperlipidemia. 4. Hypothyroidism. HOSPITAL COURSE: The patient is an 86-year-old female who came to the hospital with evidence of missed appendicitis. She had had a prior bout of 3 days of intense right-sided abdominal pain which was starting to may by the time she presented. She was found to have what looked like a phlegmon in the region of the appendix that appeared to be walled off. At that point, she was completely nontender in the region. She was admitted and put on intravenous antibiotics and her white blood count came from 18,000 down to about 13,000, although it did stay in that region. She was gradually advanced on her diet and had good bowel function, good urination. She did have repeat CT scan before discharge, which showed that it remained contained and there was no drainable collection; therefore, was felt reasonable for her to go home on oral antibiotics with the understanding that she would need to follow up closely with us in the office and to call at any time should there be any increase in symptoms. Furthermore, she was found to have a newly diagnosed right renal mass consistent with carcinoma. She was seen in consultation by Dr. Varela, who will continue to follow her as an outpatient and help her go through the treatment process. [id number]/[facility] #: [id number] MTDD
== END 2017-06-29 13:40 | disposition home or self-care (01) | DRG 248 ==
LOC: ED 14:33 → SSU 18:37 → OBSVTOIN 06-25 10:00 → SSU 06-26 11:06
PROVIDERS: ADMIT Surgery; ATTEND Surgery
DX: K35.3 Acute appendicitis with localized peritonitis (principal); C64.1 Malignant neoplasm of right kidney, except renal pelvis; D64.9 Anemia, unspecified; E03.9 Hypothyroidism, unspecified; I12.9 Hypertensive chronic kidney disease with stage 1 through stage 4 chronic kidney disease, or unspecified chronic kidney disease; E78.5 Hyperlipidemia, unspecified; H54.52 Low vision, left eye, normal vision right eye; M19.90 Unspecified osteoarthritis, unspecified site; K57.90 Diverticulosis of intestine, part unspecified, without perforation or abscess without bleeding; N18.9 Chronic kidney disease, unspecified; E87.6 Hypokalemia; Z90.710 Acquired absence of both cervix and uterus; Z82.49 Family history of ischemic heart disease and other diseases of the circulatory system; Z91.041 Radiographic dye allergy status; Z83.3 Family history of diabetes mellitus
CPT/HCPCS: 36415; 71250; 74176; 80048; 80053; 81003; 81015; 82150; 82550; 82607; 82728; 83540; 83550; 83605; 83690; 83735; 84238; 84443; 84484; 85025; 85610; 86140; 86850; 86900; 86901; 87086; 87493; 93005; A9270-GY; G0378; J2543

== ENCOUNTER 2019-01-21 15:11 | Inpatient (IN) | payer BC ==
--- OUTSIDE RECORDS SUMMARY | 2019-01-21 15:26 | XMS REPORT | Continuity of Care Document ---
:1930 External Reference #:[id number] Author Name Mega Barr M.D. Address [address] [place] [address] Care Team Providers Name Role Phone Javed Mayberry MD Care Team Information Accounts Administrator Unavailable Javed Mayberry MD Primary Care Physician Unavailable Payers Date Identification Numbers Payment Provider Subscriber Policy Number: [id number] [employer]ANN [employer] Ppo Mayra Worrell PayID: [id number] [address] [address] [place] [address] Advance Directives Description No Information Available Problems Date Description Provider Status Onset: 12/22/2016 Vitreous membranes Mega Barr M.D. 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 Active Onset: 08/28/2014 Phthisical cornea Mega Barr M.D. Active Family History Date Family Member(s) Observation Comments Father Noncontributory Mother Heart Disease Social History Type Date Description Comments Sex Unknown ETOH Use Currently consumes alcohol Tobacco Use Start: Unknown Patient has never smoked Smoking Status Reviewed: 01/01/19 Patient has never smoked Allergies, Adverse Reactions, Alerts Date Description Reaction Status Severity Comments 08/28/2014 Iodine Active Medications Medication Date Status Form Strength Qnty SIG Indications Ordering Provider Hydrochlorothiazide 00/00/ Active Tablets 25mg Cardina 0000 Javed FLORENTINO Metoprolol Succinate 00// Active Tablets 50mg Cardina ER 0000 ER 24HR Javed FLORENTINO Levothyroxine Sodium / Active Tablets 50mcg Take 1 Unknown 0000 Tablet By Mouth Every Day Benazepril HCL / Active Tablets 5mg Unknown 0000 Systane / Active Solution 0.4-0.3% 1 drops Peter 0000 both Barr, eyes M.D. twice a day Meloxicam / Active Tablets 7.5mg Unknown 0000 Furosemide / Active Tablets 20mg Unknown 0000 Clonidine HCL / Hx Tablets 0.1mg Take 1 Unknown 0000 - Tablet 08/28/ By 2014 Mouth Twice A Day Immunizations Description No Information Available Vital Signs Date Vital Result Comment 01/01/2019 2:57pm Intraocular Pressure Right Eye 18 mmHg 12/26/2017 2:08pm Intraocular Pressure Right Eye 18 mmHg Intraocular Pressure Left Eye 2 mmHg 12/22/2016 1:24pm Intraocular Pressure Right Eye 18 mmHg Intraocular Pressure Left Eye 2 mmHg 11/10/2015 2:06pm Intraocular Pressure Right Eye 17 mmHg Intraocular Pressure Left Eye 2 mmHg 08/28/2014 1:20pm Intraocular Pressure Right Eye 18 mmHg Intraocular Pressure Left Eye 7 mmHg Results Description No Information Available Procedures Date Code Description Status 01/01/2019 65717 Ophthalmoscopy Subsequent Completed 01/01/2019 92654 Eye Exam Est Comprehensive Completed 12/26/2017 78981 Eye Exam Est Intermediate Completed 12/26/2017 45151 B-Scan Contact, Ophthalmic Ultrasound Echography Completed 12/22/2016 26520 Eye Exam Est Comprehensive Completed 12/22/2016 61120 B-Scan Contact, Ophthalmic Ultrasound Echography Completed 11/10/2015 04399 Eye Exam Est Comprehensive Completed 11/10/2015 73621 B-Scan Contact, Ophthalmic Ultrasound Echography Completed 08/28/2014 86101 B-Scan Contact, Ophthalmic Ultrasound Echography Completed 08/28/2014 47650 Eye Exam Est Comprehensive Completed 08/28/2014 99549 Refraction Completed 08/25/2011 84571 Eye Exam Est Comprehensive Completed 03/12/2011 23682 Eye Exam Est Intermediate Completed 02/24/2011 95269 Eye Exam Est Comprehensive Completed 02/24/2011 27072 B-Scan Contact, Ophthalmic Ultrasound Echography Completed 08/26/2010 28665 Eye Exam Est Comprehensive Completed 02/17/2010 13103 Eye Exam New Comprehensive Completed 02/17/2010 50671 B-Scan Contact, Ophthalmic Ultrasound Echography Completed Encounters Description No Information Available Plan of Treatment 01/01/2019 - Mega Barr M.D.H44.522 Atrophy of globe, left eyeH17.12 Central corneal opacity, left eyeH50.112 Monocular exotropia, left eyeZ96.1 Presence of intraocular lensH43.311 Vitreous membranes and strands, right eyeFollow up:1 yr full/ B scans
--- OUTSIDE RECORDS SUMMARY | 2019-01-21 15:26 | XMS REPORT | Continuity of Care Document ---
:1930 External Reference #:[id number] Author Name Jose Schrader Care Team Providers Name Role Phone Javed Mayberry MD Care Team Information Form Presser Unavailable Javed Mayberry MD Primary Care Physician Unavailable Payers Date Identification Numbers Payment Provider Subscriber Policy Number: [id number] [employer]DELAR[employer]/ANN [employer] Ppo Mayra Worrell PayID: [id number] [address] [address] [place] [address] Advance Directives Description No Information Available Problems [...] Patient has never smoked Smoking Status Reviewed: 12/26/17 Patient has never smoked Allergies, Adverse Reactions, Alerts Date Description Reaction Status Severity Comments 08/28/2014 Iodine Active Medications Medication Date Status Form Strength Qnty SIG Indications Ordering Provider Hydrochlorothiazide 00/00/ Active Tablets 25mg Cardina 0000 , Javed Metoprolol Succinate 00/00/ Active Tablets 50mg Cardina ER 0000 ER 24HR , Javed Levothyroxine Sodium / Active Tablets 50mcg Take 1 Unknown 0000 Tablet By Mouth Every Day Benazepril HCL / Active Tablets 5mg Unknown 0000 Systane / Active Solution 0.4-0.3% 1 drops Peter 0000 brandi Sung M.D. twice a day Meloxicam / Active Tablets 7.5mg Unknown 0000 Furosemide / Active Tablets 20mg Unknown 0000 Clonidine HCL / Hx Tablets 0.1mg Take 1 Unknown 0000 - Tablet 08/28/ By 2013 Mouth Twice A Day Immunizations Description No Information Available Vital Signs Date Vital Result Comment 12/26/2017 2:08pm Intraocular Pressure Right Eye 18 [...] Information Available Procedures Date Code Description Status 12/26/2017 37356 Eye Exam Est Intermediate Completed 12/26/2017 17438 B-Scan Contact, Ophthalmic Ultrasound Echography Completed 12/22/2016 53374 Eye Exam Est Comprehensive Completed 12/22/2016 76454 B-Scan Contact, Ophthalmic Ultrasound Echography Completed 11/10/2015 81107 Eye Exam Est Comprehensive Completed 11/10/2015 44016 B-Scan Contact, Ophthalmic Ultrasound Echography Completed 08/28/2014 85549 Refraction Completed 08/28/2014 80441 Eye Exam Est Comprehensive Completed 08/28/2014 66024 B-Scan Contact, Ophthalmic Ultrasound Echography Completed 08/25/2011 57166 Eye Exam Est Comprehensive Completed 03/12/2011 58852 Eye Exam Est Intermediate Completed 02/24/2011 60641 Eye Exam Est Comprehensive Completed 02/24/2011 80097 B-Scan Contact, Ophthalmic Ultrasound Echography Completed 08/26/2010 97811 Eye Exam Est Comprehensive Completed 02/17/2010 22218 Eye Exam New Comprehensive Completed 02/17/2010 29381 B-Scan Contact, Ophthalmic Ultrasound Echography Completed Encounters Description No Information Available Plan of Treatment 12/26/2017 - Mega Barr M.D.Z96.1 Presence of intraocular lensFollow up:1 yrH44.522 Atrophy of globe, left eyeH17.12 Central corneal opacity, left eyeH50.112 Monocular exotropia, left eyeH18.411 Arcus senilis, right eyeH43.311 Vitreous membranes and strands, right eye
[2019-01-21] MEDS ORDERED: NS 0.9% 1000 ML** 1,000 ML IV ONE ×2 (15:52→16:18)
--- NOTE | 2019-01-21 15:59 | ED ---
Complex/Multi-Sys Presentation - HPI Summary HPI Summary: Patient is a 88 y/o female who presents to the ED c/o generalized weakness. She has renal cell carcinoma and was recently on a chemotherapy medication for 3 weeks. Patient could not tolerate the medication so stopped taking it on as per Dr. Varela. Since then shes had worsening generalized weakness, fatigue , and decreased appetite. Patient also states that she had one episode of emesis , one episode of headache, and has intermittent dysuria. Patient becomes lightheaded when standing up. She denies any fever, CP, SOB, abdominal pain, diarrhea, constipation, bloody stool, or hematuria. Her pain is rated a 3/10 in severity. Patient is accompanied by her family. - History Of Current Complaint Chief Complaint: EDWeakness Time Seen by Provider: 01/21/19 15:49 Hx Obtained From: Patient, Medical Records Onset/Duration: Gradual Onset, Still Present Timing: Constant Severity Currently: Mild - 3/10 Aggravating Factor(s): Standing up Alleviating Factor(s): Nothing Associated Signs And Symptoms: Positive: Weakness, Headache, Nausea, Vomiting. Negative: SOB, Chest Pain, Diarrhea, Abdominal Pain, Fever Related History: Other - renal cell carcinoma - Allergies/Home Medications Allergies/Adverse Reactions: Allergies Allergy/AdvReac Type Severity Reaction Status Date / Time Iodinated Contrast- Oral and Allergy Hives Verified 01/21/19 15:20 IV Dye PMH/Surg Hx/FS Hx/Imm Hx Endocrine/Hematology History: Reports: Hx Thyroid Disease - Hypothyroid Cardiovascular History: Reports: Hx Hypercholesterolemia, Hx Hypertension Respiratory History: Reports: Hx Pneumonia History: Reports: Other Problems/Disorders - Renal mass 06/24/17 Musculoskeletal History: Reports: Hx Arthritis Sensory History: Reports: Hx Contacts or Glasses - 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 Denies: Hx Legally Blind, Hx Deafness, Hx Hearing Aid Opthamlomology History: Reports: Hx Contacts or Glasses - 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 Denies: Hx Legally Blind - Cancer History Cancer Type, Location and Year: Renal Mass with possible mets seen on CT 06/24/17 Hx Chemotherapy: No Hx Radiation Therapy: No - Surgical History Surgery Procedure, Year, and Place: hysterectomy,tonsilectomy Hx Anesthesia Reactions: No - Immunization History Date of Influenza Vaccine: 06/2018 Immunizations Up to Date: Yes Infectious Disease History: No Infectious Disease History: Denies: Traveled Outside the [place] in Last 30 Days - Family History Known Family History: Positive: Other - CHF - Social History Alcohol Use: Daily Alcohol Amount: glass of wine - :OK: per PCP Hx Substance Use: No Substance Use Type: Reports: None Hx Tobacco Use: Yes Smoking Status (MU): Former Smoker Type: Cigarettes Have You Smoked in the Last Year: No Review of Systems Positive: Fatigue, Other - decreased appetite. Negative: Fever Negative: Chest Pain Negative: Shortness Of Breath Positive: Vomiting - resolved, Nausea - resolved. Negative: Abdominal Pain, Diarrhea, Other - constipation, bloody stool Positive: dysuria - intermittent. 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 ENT: mucous membranes dry Neck: supple, non-tender Respiratory: CTA, breath sounds present Cardiovascular: RRR, pulses symmetrical Abdomen: non-tender, soft Bowel Sounds: present Musculoskeletal: normal, strength/ROM intact Neuro: sensory motor intact, A&Ox3, global mild weakness, no deficits Triage Information Reviewed: Yes Vital Signs On Initial Exam: Initial Vitals Temp Pulse Resp BP Pulse Ox 97.3 F 95 17 108/62 98 01/21/19 15:17 01/21/19 15:17 01/21/19 15:17 01/21/19 15:17 01/21/19 15:17 Vital Signs Reviewed: Yes Diagnostics - Vital Signs Vital Signs Temp Pulse Resp BP Pulse Ox 01/21/19 15:17 97.3 F 95 17 108/62 98 - Laboratory Result Diagrams: 01/21/19 16:06 01/21/19 16:06 Lab Statement: Any lab studies that have been ordered have been reviewed, and results considered in the medical decision making process. - Ultrasound No standard instances Ultrasound Interpretation Completed By: ED Physician Summary of Ultrasound Findings: US performed at bedside by ED physician: no hydronephrosis, enlarged right kidney with tumor. - EKG 16:23 Cardiac Rate: NL - 85 bpm EKG Rhythm: Sinus Rhythm ST Segment: Non-Specific EKG Comparison: No Significant Change - as compared to 12/05/18 Summary of EKG Findings: 1st degree AV block, poor R wave progression Re-Evaluation - Re-Evaluation First Eval Re-Evaluation Time: 16:40 Change: Unchanged Comment: Performed renal US. Complex Multi-Symp Course/Dx Course Of Treatment: nurse's notes are reviewed. Patient with renal cell carcinoma who had recently received chemotherapy and was doing poorly with it. She is unable to eat or drink much. Her creatinine has risen from a baseline around 1.5-3.07. She received 2 L of IV fluids here. A formal ultrasound of her kidneys is pending but this does not look obstructive. I discussed the case with the hospitalist will admit. Oncology consult the morning. - Diagnoses Differential Diagnoses/HQI/PQRI: Urinary Tract Infection, Other - Dehydration, failure to thrive, metastatic cancer Provider Diagnoses: Acute renal failure, Renal cell carcinoma - Physician Notifications Discussed Care Of Patient With: Kostas Mayer Time Discussed With Above Provider: 17:00 Instructed by Provider To: Admit As Inpatient Discharge - Sign-Out/Discharge Documenting (check all that apply): Patient Departure - Admit Patient Received Moderate/Deep Sedation with Procedure: No - Discharge Plan Condition: Stable Disposition: ADMITTED TO [facility] - Billing Disposition and Condition Condition: STABLE Disposition: Admitted to [facility] - Attestation Statements Document Initiated by Enio: Yes Documenting Scribe: Arleen Watts Provider For Whom Almae is Documenting (Include Credential): Naif Loco MD Scribe Attestation: IArleen, scribed for Naif Loco MD on 01/21/19 at 1835. Scribe Documentation Reviewed: Yes Provider Attestation: The documentation as recorded by the Arleen johns accurately reflects the service I personally performed and the decisions made by me, Naif Loco MD Status of Scribe Document: Viewed
[2019-01-21 16:15] LABS: ABS Basophils 0.1 10^3/ul (0-0.2); ABS Eosinophils 0.2 10^3/ul (0-0.6); ABS Lymphocytes 2.6 10^3/ul (1.0-4.8); ABS Monocytes 0.9 10^3/ul (0-0.8); ABS Nucleated RBC 0 10^3/ul; Eosinophil % 1.7 %; Hematocrit 46 % (33-41); Lymphocyte % 26.9 %; Mean Corpuscular HGB Conc 33 g/dL (31-36); Mean Corpuscular Hemoglobin 29 pg (27-31); Mean Corpuscular Volume 89 fL (80-97); Mean Platelet Volume 10.2 fL (7.4-10.4); Nucleated Red Blood Cells % 0.2; Platelet Count 109 10^3/uL (150-450); Red Blood Count 5.17 10^6 /uL (3.70-4.87); Red Cell Distribution Width 16 % (10.5-15); White Blood Count 9.7 10^3/uL (3.5-10.8)
[2019-01-21 16:35] LABS: Albumin 4.2 g/dL (3.2-5.2); Albumin/Globulin Ratio 1.2 (1-3); BUN/Creatinine Ratio 38.1 (8-20); C Reactive Protein 10.24 mg/L (<8.01); Calcium 10.1 mg/dL (8.6-10.3); EGFR African American 17.4 (>60); EGFR Non-African American 14.4 (>60); Globulin 3.4 g/dL (2-4); Total Bilirubin 0.8 mg/dL (0.2-1.0); Total Protein 7.6 g/dL (6.4-8.9)
[2019-01-21 16:36] LABS: Troponin I 0.03 ng/mL (<0.04)
[2019-01-21 16:44] LABS: Potassium 5.2 mmol/L (3.5-5.0)
[2019-01-21 17:05] LABS: TSH (Thyroid Stimulating Horm) 1.06 mcIU/mL (0.34-5.60)
[2019-01-21] MEDS ORDERED: Ondansetron INJ* 2 MG/ML VIAL IV PRN (17:47)
[2019-01-21] MEDS ORDERED: Acetaminophen TAB* 325 MG PO PRN (17:47)
[2019-01-21] MEDS ORDERED: HYDROcodone/ACETAMIN 5-325 MG* 1 TAB PO PRN (17:55)
[2019-01-21] MEDS ORDERED: Ondansetron INJ* 2 MG/ML VIAL IV ONE (18:19)
[2019-01-21] MEDS ORDERED: Ondansetron INJ* 2 MG/ML VIAL ONE ×2 (18:35→18:37)
[2019-01-21 19:32] LABS: Urine Appearance Cloudy; Urine Bacteria Absent (Absent); Urine Bilirubin Negative (Negative); Urine Blood Negative (Negative); Urine Color Yellow; Urine Glucose Negative (Negative); Urine Ketones Trace (Negative); Urine Nitrite Negative (Negative); Urine Protein Negative (Negative); Urine Red Blood Cell Trace(0-2/hpf) (Absent); Urine Specific Gravity 1.014 (1.010-1.030); Urine Squamous Epithelial Cell Present (Absent); Urine Urobilinogen Negative (Negative); Urine White Blood Cell 3+(>20/hpf) (Absent)
[2019-01-21] MEDS: Enoxaparin(*) 30 MG/0.3 ML SYR SUBCUT SCH (20:27)
[2019-01-21] MEDS: Lactated Ringers 1000 ML Bag* 1,000 ML IV SCH (20:27)
--- NOTE | 2019-01-21 20:39 | HP ---
CC: Dr. Luiza Casarez; Dr. Javed Varela * ADMISSION HISTORY AND PHYSICAL: DATE OF ADMISSION: 01/21/19 PRIMARY CARE PROVIDER: Dr. Luiza Casarez. MY ATTENDING WHILE IN THE HOSPITAL: Dr. Kostas Mayer.* (DICTATED BY CHANTELL FANG) OUTPATIENT ONCOLOGIST: Dr. Javed Varela. CHIEF COMPLAINT: Anorexia x2 weeks. HISTORY OF PRESENT ILLNESS: Ms. Worrell is an 88-year-old female with past medical history significant for renal cell carcinoma, hypertension, and hyperlipidemia, who presents to the emergency department due to concern for dehydration. The patient went to see her oncologist in the first week in December and was prescribed pazopanib for her renal cell carcinoma, which had been shown to be increasing in size. The patient states that she tolerated the medication well for the first 3 weeks of therapy and then at that point began to notice that she became much more weak and had a decreased appetite. She took it for another week after that and then stopped on 01/12/19 due to feeling as if she could not tolerate the side effects of the medication anymore. The patient had not followed up with her primary oncologist since that time. The patient felt very dry, very fatigued. The patient has not had abdominal pain. The patient only had 1 episode of vomiting early in the course of her therapy and has not had any recently. The patient has not had any difficulty or pain with swallowing. The patient has noticed decreased urination but has never stopped taking her hydrochlorothiazide. The patient, however, attributes this to her hydrochlorothiazide as she notes she does not generally not make urine. The patient has not been taking her meloxicam recently. The patient has not had any blood in her urine or blood in her stools. The patient had no recent changes in her meds. The patient presented to the emergency department and was found to have an elevated lactic acid, a creatinine of 3, elevated liver enzymes , and a slightly elevated potassium at 5.2. Due to concern for dehydration, acute kidney injury, we were asked to evaluate the patient for admission to the hospital. PAST MEDICAL HISTORY: Renal cell carcinoma, hypertension, hyperlipidemia, hypothyroidism. PAST SURGICAL HISTORY: Hysterectomy, tonsillectomy. MEDICATIONS: 1. Levothyroxine 50 mcg p.o. daily. 2. Metoprolol succinate 50 mg p.o. daily. 3. Benazepril 20 mg p.o. b.i.d. 4. Hydrochlorothiazide 25 mg p.o. q.a.m. 5. Systane eye drops 1 drop both eyes daily. ALLERGIES: IODINATED CONTRAST. FAMILY HISTORY: The patient's mother of heart disease. The patient's father of pneumonia. The patient is the only child. The patient knows no other diseases that run in her family. SOCIAL HISTORY: The patient smoked until the 80s, but not heavily. The patient drinks alcohol occasionally but has not since she started her chemotherapy. The patient has never used illicit drugs. 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 The patient was , but has no children. The patient's surrogate decision maker will be her cousin Estee Dodson. REVIEW OF SYSTEMS: A 14-point review of systems was reviewed with the patient and is negative except as above in the HPI. PHYSICAL EXAMINATION GENERAL: The patient is an 88-year-old female, who appears stated age and sitting comfortably in bed, in no acute distress. VITAL SIGNS: At the time of evaluation, temperature 97.3, pulse rate 95, respiratory rate 17, oxygen saturation 98% on room air, blood pressure 108/62. HEENT: Head: Normocephalic, atraumatic. Sclerae anicteric. Opacification of the left iris. No conjunctival injection. Nasal and oral mucosa dry. Halitosis. No pharyngeal erythema, discharge, or exudate. NECK: Supple, nontender. No lymphadenopathy. No carotid bruits auscultated. No JVD. RESPIRATORY: Clear to auscultation bilaterally. No wheezes, rales, or rhonchi. Good air exchange bilaterally. CARDIAC: Regular rate and rhythm. No clicks, murmurs, gallops, or rubs. Pulses are 2+ in the bilateral dorsalis pedis, posterior tibialis, and radial areas. No bilateral lower extremity edema noted. ABDOMEN: Soft, nontender, nondistended. Bowel sounds present and normoactive in all 4 quadrants. No hepatosplenomegaly. No abdominal bruits auscultated. No hepatojugular reflux. GENITOURINARY: No suprapubic or CVA tenderness. NEURO: Cranial nerves II through XII intact. No focal deficits. Alert and oriented x3. PSYCHIATRIC: Pleasant and cooperative. SKIN: Clean, dry, and intact. No rash. DIAGNOSTIC STUDIES/LAB DATA: White blood cell count 5.17, hemoglobin 15.0, hematocrit 46, platelet count 109. Sodium 135, potassium 5.2, chloride 96, anion gap 7, BUN 117, creatinine 3.07, glucose 143, lactic acid 2.8, calcium 10.1. Bilirubin 0.8, AST 546, ALT 993, alkaline phosphatase 120. Troponin I 0.03. CRP 10.24. Protein 7.6, albumin 4.2, globulin 3.4. TSH 1.06. Studies: EKG shows normal sinus rhythm. No symmetrical peaked T-waves. Normal R- wave progression, left axis deviation. No other hypertrophy or enlargement. Incomplete right bundle-branch block. ASSESSMENT AND PLAN: Impression: Ms. Worrell is an 88-year-old female with past medical history significant for renal cell carcinoma, recently treated with pazopanib, as well as hypertension, who presents to the emergency department with dehydration due to anorexia likely from chemotherapeutic reaction for the past 2 weeks and was found to have acute kidney injury and transaminitis. The patient will be admitted to the hospital for IV fluid hydration and assessment of causes for her renal function and liver dysfunction. 1. Acute kidney injury. The patient's creatinine increased to 3.07 from 1.57 on 12/29/18 and 1.32 prior to initiation of her chemotherapy. This is likely due to dehydration. The patient has significantly elevated [id number] ratio. The patient is not anemic. Though this may be due to hemoconcentration , I have a low suspicion for gastrointestinal bleeding. The patient has been given 2 L of normal saline in the emergency department. The patient will be given 2 more liters of lactated Ringer's at 150 mL an hour. The patient has no known history of heart failure. The patient will have her BMP closely followed. The patient's potassium is slightly elevated. The patient has no concerning EKG changes for this. Volume expansion will be the treatment for this. There will be no specific potassium lowering therapies at this time. The patient's benazepril and hydrochlorothiazide will be held. The patient will have her lactic acid repeated. The patient had a bedside ultrasound with Dr. Naif Loco in the emergency department, which he states showed no obvious hydronephrosis; however, full evaluation of the patient's urinary system will be done via ultrasound to rule out hydronephrosis or other causes of obstruction. The patient will also have a CT of her abdomen and pelvis to assess for stones and worsening in the size of her renal cell tumor. 2. Transaminitis. The patient has significantly elevated transaminases and non - cholestatic pattern with the AST and ALT being significantly more elevated than the alkaline phosphatase. Acute liver injury is a known side effect of pazopanib and her LFTs were slightly elevated at her most recent lab work, which was done on 12/29/18 during her therapy. The patient has no other risk factors for acute liver injury. At this time, the differential includes medication side effect as well as shock liver in the setting of dehydration. These will be trended. An acute hepatitis panel and further evaluation will be ordered pending the patient's clinical course. Another unlikely cause would be liver metastases from her renal cell cancer. This cannot be fully elucidated with a noncontrast study; however, this appears unlikely and may show up regardless on the CT of her abdomen. 3. Hypertension. The patient is borderline hypotensive and borderline tachycardic. Both of these should be fixed with fluid replacement. We will continue the patient's metoprolol at a decreased dose to avoid rebound. We will hold the patient's hydrochlorothiazide and benazepril due to the acute kidney injury and dehydration. 4. Hypothyroidism. Continue the patient's levothyroxine. 5. FEN: The patient will have a regular unrestricted diet, encouraging fluids. 6. Code status: The patient would like to be a full code. The patient's surrogate decision maker will be her cousin Estee Dodson as above. 7. Disposition: The patient is admitted to observation. TIME SPENT: Approximately 60 minutes was spent on the admission of this patient , 30 of which was spent [id number] with the patient obtaining history and physical and discussing treatment plan. This plan was discussed with my attending, Dr. Kostas Mayer, and he is in agreement. CHANTELL FANG [id number]/CPS #: [id number] TYRESE
[2019-01-21] MEDS: PROCHLORPERAZINE INJ 5 MG/ML 2 ML VIAL IV PRN (23:19)
[2019-01-22] MEDS: Lactated Ringers 1000 ML Bag* 1,000 ML IV SCH (04:07)
[2019-01-22 06:54] LABS: ABS Basophils 0.1 10^3/ul (0-0.2); ABS Eosinophils 0 10^3/ul (0-0.6); ABS Lymphocytes 2.6 10^3/ul (1.0-4.8); ABS Monocytes 0.7 10^3/ul (0-0.8); ABS Neutrophils 5.4 10^3/ul (1.5-7.7); ABS Nucleated RBC 0 10^3/ul; Eosinophil % 0.3 %; Hematocrit 37 % (33-41); Hemoglobin 12.1 g/dL (12.0-16.0); Lymphocyte % 29.8 %; Mean Corpuscular HGB Conc 33 g/dL (31-36); Mean Corpuscular Hemoglobin 29 pg (27-31); Mean Corpuscular Volume 88 fL (80-97); Mean Platelet Volume 9.9 fL (7.4-10.4); Nucleated Red Blood Cells % 0.1; Platelet Count 86 10^3/uL (150-450); Red Blood Count 4.24 10^6 /uL (3.70-4.87); Red Cell Distribution Width 17 % (10.5-15); White Blood Count 8.8 10^3/uL (3.5-10.8)
[2019-01-22 07:10] LABS: Albumin 3.2 g/dL (3.2-5.2); Albumin/Globulin Ratio 1.3 (1-3); BUN/Creatinine Ratio 44.5 (8-20); Calcium 8.8 mg/dL (8.6-10.3); EGFR African American 25.8 (>60); EGFR Non-African American 21.3 (>60); Globulin 2.5 g/dL (2-4); Magnesium 2.6 mg/dL (1.9-2.7); Total Bilirubin 0.6 mg/dL (0.2-1.0); Total Protein 5.7 g/dL (6.4-8.9)
[2019-01-22] MEDS ORDERED: Metoprolol Succinate XL TAB* 25 MG PO SCH (09:00)
[2019-01-22] MEDS ORDERED: Levothyroxine TAB* 50 MCG TAB PO SCH (09:00)
[2019-01-22] MEDS ORDERED: Lactated Ringers 1000 ML Bag* 1,000 ML IV ONE (13:00)
--- NOTE | 2019-01-22 15:35 | PN ---
Progress Note - Progress Note Date of Service: 01/22/19 SOAP: Subjective: []Started therapy on 12/17/18. First two weeks were good. During third week developed anorexia and fatigue. Spending more time in bed. Stopped therapy on the . Did not recover and on Tuesday was still in bed all day. Family made her come to ER. In ER, Cr 3.04, low BP. Acetaminophen (Tylenol Tab*) 650 mg PO Q6H PRN PRN Reason: FEVER/PAIN Hydrocodone Bitart/Acetaminophen ([place] 5-325 Tab*) 1 tab PO Q4H PRN PRN Reason: PAIN Enoxaparin Sodium (Lovenox(*)) 30 mg SUBCUT Q24H [facility] Last Admin: 01/21/19 20:27 Dose: 30 mg Lactated Ringer's (Lactated Ringers 1000 Ml Bag*) 1,000 mls @ 150 mls/hr IV PER RATE [facility] Stop: 01/23/19 00:39 Last Admin: 01/22/19 04:07 Dose: 150 mls/hr Levothyroxine Sodium (Synthroid Tab*) 50 mcg PO 0600 [facility] Metoprolol Succinate (Toprol Xl Tab*) 25 mg PO QAM [facility] Last Admin: 01/22/19 09:16 Dose: Not Given Ondansetron HCl (Zofran Inj*) 4 mg IV Q6H PRN PRN Reason: NAUSEA Prochlorperazine Edisylate (Compazine Inj*) 5 mg IV Q6H PRN PRN Reason: NAUSEA/VOMITING Last Admin: 01/21/19 23:19 Dose: 5 mg Objective: [] Vital Signs Temp Pulse Resp BP Pulse Ox 96.4 F 88 20 84/52 97 01/22/19 11:42 01/22/19 11:42 01/22/19 11:42 01/22/19 11:59 01/22/19 11:42 HEENT: OM dry, no LAD CTA RRR S1S2 RRR S1S2 Abd: No masses and good BS CT A/P the mass on the R kidney is stable to increased, not decreased. There is an area of viable kidney superior to the mass that is now obstructed. No new areas of disease on the non contrast study Assessment: []88 year old with large R sided renal cancer, clear cell G2. Has refused surgery, aggressive therapy. Trial of pazopanib c/w anorexia and dehydration while on diuretics. I suspect dehydration is dominant in her symptoms, weakness , low BP and increased Cr. Plan: []1. Will plan IVF over next 24-48 hrs and follow, encouraged PO intake. 2. Follow BP, hold HTN medication for SBP < 90 3. If renal function does not normalize and consider R sided stent. 4. Will plan d/c off pazopanib and HCTZ, decide in future if she will re-treat her cancer.
[2019-01-22] MEDS ORDERED: NS 0.9% 1000 ML** 1,000 ML IV SCH (15:45)
[2019-01-22] MEDS: NS 0.9% 1000 ML** 1,000 ML IV SCH (17:35)
[2019-01-22] MEDS: Enoxaparin(*) 30 MG/0.3 ML SYR SUBCUT SCH (17:35)
[2019-01-22] MEDS: PTO:Polyethyl Glycol/Propylene Gly OPHTH.SOLN BOTH EYES SCH (21:27)
[2019-01-23] MEDS: NS 0.9% 1000 ML** 1,000 ML IV SCH ×3 (01:37→21:40)
[2019-01-23] MEDS: Levothyroxine TAB* 50 MCG TAB PO SCH (06:00)
[2019-01-23 08:07] LABS: Albumin 2.8 g/dL (3.2-5.2); Calcium 8.4 mg/dL (8.6-10.3); Potassium 4.5 mmol/L (3.5-5.0); Total Bilirubin 0.7 mg/dL (0.2-1.0)
[2019-01-23 08:08] LABS: ABS Basophils 0.1 10^3/ul (0-0.2); ABS Eosinophils 0.3 10^3/ul (0-0.6); ABS Lymphocytes 2.1 10^3/ul (1.0-4.8); ABS Monocytes 0.8 10^3/ul (0-0.8); ABS Neutrophils 3.9 10^3/ul (1.5-7.7); ABS Nucleated RBC 0 10^3/ul; Eosinophil % 3.8 %; Hematocrit 35 % (33-41); Hemoglobin 11.5 g/dL (12.0-16.0); Lymphocyte % 29.8 %; Mean Corpuscular HGB Conc 33 g/dL (31-36); Mean Corpuscular Hemoglobin 29 pg (27-31); Mean Corpuscular Volume 88 fL (80-97); Mean Platelet Volume 9.5 fL (7.4-10.4); Nucleated Red Blood Cells % 0.1; Platelet Count 76 10^3/uL (150-450); Red Blood Count 3.94 10^6 /uL (3.70-4.87); Red Cell Distribution Width 17 % (10.5-15); White Blood Count 7.2 10^3/uL (3.5-10.8)
[2019-01-23] MEDS: Metoprolol Succinate XL TAB* 25 MG PO SCH (09:12)
--- NOTE | 2019-01-23 10:52 | PN ---
Progress Note - Progress Note Date of Service: 01/23/19 SOAP: Subjective: [No significant changes in symptoms. Appetite remains poor, she is only sipping on liquids and has not taken in any solid foods. No nausea or vomiting. Denies new cough or SOB. Mostly bed bound, she has not been moving much. Remains quite fatigued.] Objective: [ Acetaminophen (Tylenol Tab*) 650 mg PO Q6H PRN PRN Reason: FEVER/PAIN Hydrocodone Bitart/Acetaminophen ([place] 5-325 Tab*) 1 tab PO Q4H PRN PRN Reason: PAIN Enoxaparin Sodium (Lovenox(*)) 30 mg SUBCUT Q24H [facility] Last Admin: 01/22/19 17:35 Dose: 30 mg Sodium Chloride (Ns 0.9% 1000 Ml) 1,000 mls @ 125 mls/hr IV PER RATE [facility] Last Admin: 01/23/19 01:37 Dose: 125 mls/hr Levothyroxine Sodium (Synthroid Tab*) 50 mcg PO 0600 [facility] Last Admin: 01/23/19 06:00 Dose: 50 mcg Metoprolol Succinate (Toprol Xl Tab*) 25 mg PO QAM [facility] Last Admin: 01/23/19 09:12 Dose: Not Given Ondansetron HCl (Zofran Inj*) 4 mg IV Q6H PRN PRN Reason: NAUSEA Polyethyl Glycol/Propylene Glycol (Lubricant Eye Drops) 1 drop BOTH EYES DAILY@ 2100 [facility] Last Admin: 01/22/19 21:27 Dose: 1 drop Prochlorperazine Edisylate (Compazine Inj*) 5 mg IV Q6H PRN PRN Reason: NAUSEA/VOMITING Last Admin: 01/21/19 23:19 Dose: 5 mg Laboratory Results - last 24 hr 01/23/19 01/23/19 07:43 07:43 WBC 7.2 RBC 3.94 Hgb 11.5 L Hct 35 MCV 88 MCH 29 MCHC 33 RDW 17 H Plt Count 76 L D MPV 9.5 Neut % (Auto) 54.7 Lymph % (Auto) 29.8 Green % (Auto) 10.8 Eos % (Auto) 3.8 Baso % (Auto) 0.9 Absolute Neuts (auto) 3.9 Absolute Lymphs (auto) 2.1 Absolute Monos (auto) 0.8 Absolute Eos (auto) 0.3 Absolute Basos (auto) 0.1 Absolute Nucleated RBC 0 Nucleated RBC % 0.1 Sodium 141 Potassium 4.5 Chloride 112 H Carbon Dioxide 20 L Anion Gap 9 Calcium 8.4 L Magnesium 2.0 Total Bilirubin 0.70 Albumin 2.8 L Vital Signs Temp Pulse Resp BP Pulse Ox 97.3 F 89 16 107/63 95 01/23/19 07:56 01/23/19 08:36 01/23/19 09:18 01/23/19 08:36 01/23/19 07:56 Exam: Gen: Frail appearing 88 yo female in NAD HEENT: L eye opaque, MM CV: RRR, no m/r/g Resp: CTA, no w/c/r Abd: soft, nonTTP Ext: no edema Skin: no rashes] Assessment: [88 yo female with RCC who recently started pazopinib and developed severe fatigue and was admitted with ALLYSSA and transaminitis.] Plan: [1. ALLYSSA - secondary to poor intake, improving - cont IVF - noted some progressive obstruction of the R collecting system and may require a stent depending on whether Cr normalizes, no pain associated 2. Transaminitis - improving - likely related to pazopinib - no pathology appreciated on CT] 3. RCC - hold pazopinib - no plans to resume at discharge, will reassess appropriateness of resuming therapy following discharge Dispo: plan for dc home when her renal/liver function improve and she is able to eat/drink adequate amounts to sustain herself
[2019-01-23 16:53] LABS: Albumin/Globulin Ratio 1.2 (1-3); BUN/Creatinine Ratio 37.7 (8-20); EGFR African American 35.1 (>60); Globulin 2.3 g/dL (2-4); Total Protein 5.1 g/dL (6.4-8.9)
[2019-01-23] MEDS: Enoxaparin(*) 30 MG/0.3 ML SYR SUBCUT SCH (18:54)
[2019-01-23] MEDS: Docusate CAP* 100 MG PO SCH (20:08)
[2019-01-23] MEDS: PTO:Polyethyl Glycol/Propylene Gly OPHTH.SOLN BOTH EYES SCH (20:08)
[2019-01-23] MEDS: Senna TAB PO SCH (20:08)
[2019-01-24] MEDS: NS 0.9% 1000 ML** 1,000 ML IV SCH (05:49)
[2019-01-24] MEDS: Levothyroxine TAB* 50 MCG TAB PO SCH (05:49)
[2019-01-24] MEDS: Metoprolol Succinate XL TAB* 25 MG PO SCH (08:13)
[2019-01-24] MEDS: Docusate CAP* 100 MG PO SCH ×2 (08:13→21:07)
[2019-01-24 09:32] LABS: ABS Basophils 0.1 10^3/ul (0-0.2); ABS Eosinophils 0.5 10^3/ul (0-0.6); ABS Lymphocytes 2.4 10^3/ul (1.0-4.8); ABS Monocytes 0.8 10^3/ul (0-0.8); ABS Neutrophils 3.9 10^3/ul (1.5-7.7); ABS Nucleated RBC 0 10^3/ul; Eosinophil % 6.1 %; Hematocrit 35 % (33-41); Hemoglobin 11.4 g/dL (12.0-16.0); Mean Corpuscular HGB Conc 33 g/dL (31-36); Mean Corpuscular Hemoglobin 29 pg (27-31); Mean Corpuscular Volume 89 fL (80-97); Mean Platelet Volume 10.1 fL (7.4-10.4); Nucleated Red Blood Cells % 0; Platelet Count 87 10^3/uL (150-450); Red Blood Count 3.91 10^6 /uL (3.70-4.87); Red Cell Distribution Width 18 % (10.5-15); White Blood Count 7.6 10^3/uL (3.5-10.8)
[2019-01-24 09:38] LABS: Albumin 2.7 g/dL (3.2-5.2); Albumin/Globulin Ratio 1.3 (1-3); BUN/Creatinine Ratio 30.2 (8-20); Calcium 8.1 mg/dL (8.6-10.3); EGFR African American 47.3 (>60); EGFR Non-African American 39.1 (>60); Globulin 2.1 g/dL (2-4); Total Bilirubin 0.7 mg/dL (0.2-1.0); Total Protein 4.8 g/dL (6.4-8.9)
[2019-01-24] MEDS ORDERED: NS 0.9% 1000 ML** 1,000 ML IV SCH (11:14)
--- NOTE | 2019-01-24 11:14 | PN ---
Progress Note - Progress Note Date of Service: 01/24/19 SOAP: Subjective: [Up to a chair this am. Reports that she is feeling slightly better. Ate a little broth based soup for dinner last night, nothing for breakfast this am, but looking forward to soup for lunch. No cough/SOB. No abd pain. 2 BMs today.] Objective: [ Laboratory Results - last 24 hr 01/23/19 01/24/19 01/24/19 07:43 08:22 08:22 WBC 7.6 RBC 3.91 Hgb 11.4 L Hct 35 MCV 89 MCH 29 MCHC 33 RDW 18 H Plt Count 87 L MPV 10.1 Neut % (Auto) 51.5 Lymph % (Auto) 31.0 Simpson % (Auto) 10.5 Eos % (Auto) 6.1 Baso % (Auto) 0.9 Absolute Neuts (auto) 3.9 Absolute Lymphs (auto) 2.4 Absolute Monos (auto) 0.8 Absolute Eos (auto) 0.5 Absolute Basos (auto) 0.1 Absolute Nucleated RBC 0 Nucleated RBC % 0 Sodium 142 Potassium 4.0 Chloride 114 H Carbon Dioxide 19 L Anion Gap 9 BUN 63 H 39 H Creatinine 1.67 H 1.29 H Est GFR ( Amer) 35.1 47.3 Est GFR (Non-Af Amer) 29.0 39.1 BUN/Creatinine Ratio 37.7 H 30.2 H Glucose 88 95 Calcium 8.1 L Total Bilirubin 0.70 AST 294 H 244 H ALT 526 H 414 H Alkaline Phosphatase 124 H 128 H Total Protein 5.1 L 4.8 L Albumin 2.7 L Globulin 2.3 2.1 Albumin/Globulin Ratio 1.2 1.3 Acetaminophen (Tylenol Tab*) 650 mg PO Q6H PRN PRN Reason: FEVER/PAIN Hydrocodone Bitart/Acetaminophen ([place] 5-325 Tab*) 1 tab PO Q4H PRN PRN Reason: PAIN Docusate Sodium (Colace Cap*) 100 mg PO BID [facility] Last Admin: 01/24/19 08:13 Dose: 100 mg Enoxaparin Sodium (Lovenox(*)) 30 mg SUBCUT Q24H [facility] Last Admin: 01/23/19 18:54 Dose: 30 mg Sodium Chloride (Ns 0.9% 1000 Ml) 1,000 mls @ 125 mls/hr IV PER RATE [facility] Last Admin: 01/24/19 05:49 Dose: 125 mls/hr Levothyroxine Sodium (Synthroid Tab*) 50 mcg PO 0600 [facility] Last Admin: 01/24/19 05:49 Dose: 50 mcg Metoprolol Succinate (Toprol Xl Tab*) 25 mg PO QAM [facility] Last Admin: 01/24/19 08:13 Dose: 25 mg Ondansetron HCl (Zofran Inj*) 4 mg IV Q6H PRN PRN Reason: NAUSEA Polyethyl Glycol/Propylene Glycol (Lubricant Eye Drops) 1 drop BOTH EYES DAILY@ 2100 [facility] Last Admin: 01/23/19 20:08 Dose: 1 drop Prochlorperazine Edisylate (Compazine Inj*) 5 mg IV Q6H PRN PRN Reason: NAUSEA/VOMITING Last Admin: 01/21/19 23:19 Dose: 5 mg Senna (Senokot Tab*) 1 tab PO BEDTIME [facility] Last Admin: 01/23/19 20:08 Dose: 1 tab Vital Signs: Temp Pulse Resp BP Pulse Ox 97.5 F 88 14 109/59 95 01/24/19 07:17 01/24/19 07:17 01/24/19 07:17 01/24/19 07:17 01/24/19 07:17 Exam: Gen: Frail appearing 88 yo female in NAD HEENT: L eye opaque, MMM CV: RRR, no m/r/g Resp: CTA, no w/c/r Abd: soft, nonTTP Ext: no edema Skin: no rashes] Assessment: [88 yo female with RCC who recently started pazopinib and developed severe fatigue and was admitted with ALLYSSA and transaminitis.] Plan: [1. ALLYSSA - secondary to poor intake, improving - cont IVF, but will slow the rate to 50ml/h - noted some progressive obstruction of the R collecting system and may require a stent depending on whether Cr normalizes, no pain associated 2. Transaminitis - improving - likely related to pazopinib - no pathology appreciated on CT 3. RCC - hold pazopinib - no plans to resume at discharge, will reassess appropriateness of resuming therapy following discharge Dispo: plan for dc home when her renal/liver function improve and she is able to eat/drink adequate amounts to sustain herself, cont PT during hospital stay but unlikely to need ARTHUR]
[2019-01-24] MEDS: Enoxaparin(*) 30 MG/0.3 ML SYR SUBCUT SCH (16:43)
[2019-01-24] MEDS ORDERED: PTO:Polyethyl Glycol/Propylene Gly OPHTH.SOLN BOTH EYES SCH (17:00)
[2019-01-24] MEDS: PTO:Polyethyl Glycol/Propylene Gly OPHTH.SOLN BOTH EYES SCH ×2 (17:33→21:07)
[2019-01-24] MEDS: Senna TAB PO SCH (21:08)
[2019-01-25] MEDS: Levothyroxine TAB* 50 MCG TAB PO SCH (05:39)
[2019-01-25] MEDS: Docusate CAP* 100 MG PO SCH ×2 (08:16→21:45)
[2019-01-25] MEDS: Metoprolol Succinate XL TAB* 25 MG PO SCH (08:17)
[2019-01-25] MEDS: PTO:Polyethyl Glycol/Propylene Gly OPHTH.SOLN BOTH EYES SCH ×2 (08:18→21:45)
--- NOTE | 2019-01-25 09:17 | PN ---
Progress Note - Progress Note Date of Service: 01/25/19 SOAP: Subjective: [Feeling slightly better. Reports yesterday was busy. Drinking broth and sipping on other fluids. Really no solid foods. No n/v/d/c] Objective: [ Acetaminophen (Tylenol Tab*) 650 mg PO Q6H PRN PRN Reason: FEVER/PAIN Hydrocodone Bitart/Acetaminophen ([place] 5-325 Tab*) 1 tab PO Q4H PRN PRN Reason: PAIN Docusate Sodium (Colace Cap*) 100 mg PO BID [facility] Last Admin: 01/25/19 08:16 Dose: Not Given Enoxaparin Sodium (Lovenox(*)) 30 mg SUBCUT Q24H [facility] Last Admin: 01/24/19 16:43 Dose: 30 mg Levothyroxine Sodium (Synthroid Tab*) 50 mcg PO 0600 [facility] Last Admin: 01/25/19 05:39 Dose: 50 mcg Metoprolol Succinate (Toprol Xl Tab*) 25 mg PO QAM [facility] Last Admin: 01/25/19 08:17 Dose: 25 mg Ondansetron HCl (Zofran Inj*) 4 mg IV Q6H PRN PRN Reason: NAUSEA Polyethyl Glycol/Propylene Glycol (Lubricant Eye Drops) 2 drop BOTH EYES BID [facility] Last Admin: 01/25/19 08:18 Dose: 2 drop Prochlorperazine Edisylate (Compazine Inj*) 5 mg IV Q6H PRN PRN Reason: NAUSEA/VOMITING Last Admin: 01/21/19 23:19 Dose: 5 mg Senna (Senokot Tab*) 1 tab PO BEDTIME [facility] Last Admin: 01/24/19 21:08 Dose: Not Given Vital Signs: Temp Pulse Resp BP Pulse Ox 97.7 F 99 18 115/69 93 01/25/19 07:24 01/25/19 07:24 01/25/19 07:24 01/25/19 07:24 01/25/19 07:24 Exam: Gen: Frail appearing 88 yo female in NAD HEENT: L eye opaque, MMM CV: RRR, no m/r/g Resp: few crackles at lung bases Abd: soft, nonTTP Ext: no edema Skin: no rashes] Assessment: [88 yo female with RCC who recently started pazopinib and developed severe fatigue and was admitted with ALLYSSA and transaminitis.] Plan: [1. ALLYSSA - secondary to poor intake, improving (labs from today are pending) - stop IVF today - noted some progressive obstruction of the R collecting system on CT and may require a stent depending on whether Cr normalizes, no pain associated 2. Transaminitis - improving - likely related to pazopinib - no pathology appreciated on CT 3. RCC - hold pazopinib - no plans to resume at discharge, will reassess appropriateness of resuming therapy following discharge Dispo: tentatively plan for dc home tomorrow if she is successful off of IVF today]
[2019-01-25 10:54] LABS: ABS Basophils 0.1 10^3/ul (0-0.2); ABS Eosinophils 0.2 10^3/ul (0-0.6); ABS Lymphocytes 2.2 10^3/ul (1.0-4.8); ABS Monocytes 0.8 10^3/ul (0-0.8); ABS Neutrophils 4.1 10^3/ul (1.5-7.7); ABS Nucleated RBC 0 10^3/ul; Eosinophil % 2.3 %; Hematocrit 35 % (33-41); Hemoglobin 11.3 g/dL (12.0-16.0); Lymphocyte % 29.8 %; Mean Corpuscular HGB Conc 32 g/dL (31-36); Mean Corpuscular Hemoglobin 29 pg (27-31); Mean Corpuscular Volume 89 fL (80-97); Mean Platelet Volume 9.5 fL (7.4-10.4); Nucleated Red Blood Cells % 0; Platelet Count 79 10^3/uL (150-450); Red Blood Count 3.94 10^6 /uL (3.70-4.87); Red Cell Distribution Width 18 % (10.5-15); White Blood Count 7.4 10^3/uL (3.5-10.8)
[2019-01-25 11:29] LABS: Albumin 2.9 g/dL (3.2-5.2); Albumin/Globulin Ratio 1.3 (1-3); BUN/Creatinine Ratio 23.1 (8-20); Calcium 8.2 mg/dL (8.6-10.3); EGFR African American 46.9 (>60); EGFR Non-African American 38.7 (>60); Globulin 2.2 g/dL (2-4); Total Bilirubin 0.7 mg/dL (0.2-1.0); Total Protein 5.1 g/dL (6.4-8.9)
[2019-01-25] MEDS: Enoxaparin(*) 30 MG/0.3 ML SYR SUBCUT SCH (18:00)
[2019-01-25] MEDS: Senna TAB PO SCH (21:46)
[2019-01-26] MEDS: Levothyroxine TAB* 50 MCG TAB PO SCH (05:06)
[2019-01-26 08:53] LABS: Albumin 2.8 g/dL (3.2-5.2); Albumin/Globulin Ratio 1.3 (1-3); BUN/Creatinine Ratio 21.3 (8-20); Calcium 8.2 mg/dL (8.6-10.3); EGFR African American 48.2 (>60); EGFR Non-African American 39.8 (>60); Globulin 2.2 g/dL (2-4); Potassium 3.8 mmol/L (3.5-5.0); Total Bilirubin 0.6 mg/dL (0.2-1.0)
[2019-01-26] MEDS: Docusate CAP* 100 MG PO SCH ×2 (09:15→19:32)
[2019-01-26] MEDS: Metoprolol Succinate XL TAB* 25 MG PO SCH (09:15)
[2019-01-26] MEDS: PTO:Polyethyl Glycol/Propylene Gly OPHTH.SOLN BOTH EYES SCH ×2 (09:16→19:34)
[2019-01-26] MEDS: PROCHLORPERAZINE INJ 5 MG/ML 2 ML VIAL IV PRN (09:31)
--- NOTE | 2019-01-26 09:38 | PN ---
Progress Note - Progress Note Date of Service: 01/26/19 SOAP: Subjective: []Not much change, still weak and not eating well. Appetite is poor and has pain in stomach when eats. Worked with PT but could only do a few steps and 5 stairs. She does not think she can go home today. Pain is fine other then after eating. Physical therapy note: unable to walk up 17 steps, not safe for discharge home. Acetaminophen (Tylenol Tab*) 650 mg PO Q6H PRN PRN Reason: FEVER/PAIN Hydrocodone Bitart/Acetaminophen ([place] 5-325 Tab*) 1 tab PO Q4H PRN PRN Reason: PAIN Docusate Sodium (Colace Cap*) 100 mg PO BID [facility] Last Admin: 01/26/19 09:15 Dose: 100 mg Enoxaparin Sodium (Lovenox(*)) 30 mg SUBCUT Q24H [facility] Last Admin: 01/25/19 18:00 Dose: 30 mg Levothyroxine Sodium (Synthroid Tab*) 50 mcg PO 0600 [facility] Last Admin: 01/26/19 05:06 Dose: 50 mcg Metoprolol Succinate (Toprol Xl Tab*) 25 mg PO QAM [facility] Last Admin: 01/26/19 09:15 Dose: 25 mg Ondansetron HCl (Zofran Inj*) 4 mg IV Q6H PRN PRN Reason: NAUSEA Polyethyl Glycol/Propylene Glycol (Lubricant Eye Drops) 2 drop BOTH EYES BID [facility] Last Admin: 01/26/19 09:16 Dose: 2 drop Prochlorperazine Edisylate (Compazine Inj*) 5 mg IV Q6H PRN PRN Reason: NAUSEA/VOMITING Last Admin: 01/26/19 09:31 Dose: 5 mg Senna (Senokot Tab*) 1 tab PO BEDTIME [facility] Last Admin: 01/25/19 21:46 Dose: Not Given Objective: [] Vital Signs Temp Pulse Resp BP Pulse Ox 97.8 F 74 18 114/53 97 01/26/19 07:01 01/26/19 07:01 01/26/19 07:01 01/26/19 07:01 01/26/19 07:01 Exam: Gen: Frail appearing 88 yo female in NAD HEENT: L eye opaque, MMM CV: RRR, no m/r/g Resp: few crackles at lung bases Abd: soft, nonTTP Ext: no edema Skin: no rashes] Assessment: [88 yo female with RCC who recently started pazopinib and developed severe fatigue and was admitted with ALLYSSA and transaminitis. Slow improvement but she remains weak and with poor appetite. Imaging with large renal mass and little metastatic disease. Unclear if current symptoms are secondary to her cancer or SE of Pazopanib. She has refused surgery in the past but it would be the most effective way to treat her cancer. ] Plan: [1. Anorexia. Slow fall in LFTs - Check CT A/P with PO and IVC today, evaluate for occult liver metastasis. - Try PPI for abdominal pain. - Encourage Pos. 2. Disposition. She dose not feel she can go home and PT note not encouraging. Will follow with PT over weekend. Discussed with patient that if not ready for discharge on Tuesday, NH with PT for sub acute rehab. 3. RCC. Unclear if PS will improve to re-challenge, next therapy would be Nivolumab if we get there. Will discuss with IR if there is role for tumor equalization. 4. ALLYSSA. Improved, hold IVF. Follow K and Mg
[2019-01-26] MEDS ORDERED: diPHENhydraMINE PO* 25 MG PO ONE (09:48)
[2019-01-26] MEDS: Pantoprazole TAB * 40 MG TAB PO SCH (10:45)
[2019-01-26] MEDS: Enoxaparin(*) 30 MG/0.3 ML SYR SUBCUT SCH (17:56)
[2019-01-26] MEDS: predniSONE TAB* 50 MG PO SCH (19:32)
[2019-01-26] MEDS: Senna TAB PO SCH (19:33)
[2019-01-27] MEDS: predniSONE TAB* 50 MG PO SCH ×2 (02:08→08:11)
[2019-01-27] MEDS: Levothyroxine TAB* 50 MCG TAB PO SCH (05:55)
[2019-01-27 07:34] LABS: Albumin 2.7 g/dL (3.2-5.2); Albumin/Globulin Ratio 1.3 (1-3); BUN/Creatinine Ratio 21.9 (8-20); EGFR African American 47.7 (>60); EGFR Non-African American 39.4 (>60); Globulin 2.1 g/dL (2-4); Magnesium 1.5 mg/dL (1.9-2.7); Potassium 4.4 mmol/L (3.5-5.0); Total Bilirubin 0.5 mg/dL (0.2-1.0); Total Protein 4.8 g/dL (6.4-8.9)
[2019-01-27] MEDS ORDERED: diPHENhydraMINE PO* 25 MG PO ONE (08:00)
[2019-01-27] MEDS: Docusate CAP* 100 MG PO SCH ×2 (08:10→20:38)
[2019-01-27] MEDS: Metoprolol Succinate XL TAB* 25 MG PO SCH (08:11)
[2019-01-27] MEDS: Pantoprazole TAB * 40 MG TAB PO SCH (08:11)
[2019-01-27] MEDS ORDERED: Iodixanol* (CONTRAST) 320 MG/ML 100 ML SDV IV ONE (09:44)
[2019-01-27] MEDS ORDERED: NS 0.9% 1000 ML** 1,000 ML IV SCH (10:15)
--- NOTE | 2019-01-27 10:33 | PN ---
Progress Note - Progress Note Date of Service: 01/27/19 SOAP: Subjective: [Feeling progressively better. Appetite improving. Motivated to be moving more.] Objective: [ Laboratory Results - last 24 hr 01/27/19 06:51 Sodium 141 Potassium 4.4 Chloride 113 H Carbon Dioxide 19 L Anion Gap 9 BUN 28 H Creatinine 1.28 H Est GFR ( Amer) 47.7 Est GFR (Non-Af Amer) 39.4 BUN/Creatinine Ratio 21.9 H Glucose 148 H Calcium 8.0 L Magnesium 1.5 L Total Bilirubin 0.50 AST 158 H ALT 308 H Alkaline Phosphatase 128 H Total Protein 4.8 L Albumin 2.7 L Globulin 2.1 Albumin/Globulin Ratio 1.3 Acetaminophen (Tylenol Tab*) 650 mg PO Q6H PRN PRN Reason: FEVER/PAIN Hydrocodone Bitart/Acetaminophen ([place] 5-325 Tab*) 1 tab PO Q4H PRN PRN Reason: PAIN Docusate Sodium (Colace Cap*) 100 mg PO BID [facility] Last Admin: 01/27/19 08:10 Dose: 100 mg Enoxaparin Sodium (Lovenox(*)) 30 mg SUBCUT Q24H [facility] Last Admin: 01/26/19 17:56 Dose: 30 mg Sodium Chloride (Ns 0.9% 1000 Ml) 1,000 mls @ 100 mls/hr IV PER RATE [facility] Stop: 01/27/19 20:14 Magnesium Sulfate (Magnesium Sulf 4 Gm/100 Ml Iv*) 4,000 mg in 100 mls @ 33.333 mls/hr IVPB ONCE ONE Stop: 01/27/19 13:09 Levothyroxine Sodium (Synthroid Tab*) 50 mcg PO 0600 [facility] Last Admin: 01/27/19 05:55 Dose: 50 mcg Metoprolol Succinate (Toprol Xl Tab*) 25 mg PO QAM [facility] Last Admin: 01/27/19 08:11 Dose: 25 mg Ondansetron HCl (Zofran Inj*) 4 mg IV Q6H PRN PRN Reason: NAUSEA Pantoprazole Sodium (Protonix Tab*) 40 mg PO DAILY [facility] Last Admin: 01/27/19 08:11 Dose: 40 mg Polyethyl Glycol/Propylene Glycol (Lubricant Eye Drops) 2 drop BOTH EYES BID [facility] Last Admin: 01/26/19 19:34 Dose: 2 drop Senna (Senokot Tab*) 1 tab PO BEDTIME [facility] Last Admin: 01/26/19 19:33 Dose: Not Given Vital Signs: Temp Pulse Resp BP Pulse Ox 97.9 F 64 16 119/54 96 01/27/19 08:16 01/27/19 08:16 01/27/19 08:16 01/27/19 08:16 01/27/19 08:16 Exam: Gen: Frail appearing 88 yo female in NAD HEENT: L eye opaque, MMM CV: RRR, no m/r/g Resp: CTA, no w/c/r Abd: soft, nonTTP Ext: no edema Skin: no rashes] Assessment: [88 yo female with RCC who recently started pazopinib and developed severe fatigue and was admitted with ALLYSSA and transaminitis. Slow improvement but she remains weak and with poor appetite. Imaging with large renal mass and little metastatic disease. Unclear if current symptoms are secondary to her cancer or SE of Pazopanib. She has refused surgery in the past but it would be the most effective way to treat her cancer. ] Plan: [1. Anorexia. improving - Slow fall in LFTs - Check CT A/P with contrast was negative for occult liver disease, no change in renal tumor and associated LAD - Cont PPI - some inflammatory change in the gastric antrum on CT as well 2. RCC. Unclear if PS will improve to re-challenge, next therapy would be Nivolumab 3. ALLYSSA. - repleting Mg - give 1L NS today, slowly following IV contrast Disposition: Goal for dc home, possibly tomorrow. Discussed with patient that if not ready for discharge on Tuesday, NH with PT for sub acute rehab.]
[2019-01-27] MEDS: Magnesium Sulf 4 GM/100 ML IV* 4,000 MG/100 ML BAG IVPB ONE ×2 (10:43→10:54)
[2019-01-27] MEDS: PTO:Polyethyl Glycol/Propylene Gly OPHTH.SOLN BOTH EYES SCH ×2 (10:53→21:01)
[2019-01-27] MEDS: Enoxaparin(*) 30 MG/0.3 ML SYR SUBCUT SCH (17:57)
[2019-01-27] MEDS: Senna TAB PO SCH (20:38)
[2019-01-28] MEDS: Levothyroxine TAB* 50 MCG TAB PO SCH (05:59)
[2019-01-28 07:19] LABS: ABS Basophils 0 10^3/ul (0-0.2); ABS Eosinophils 0 10^3/ul (0-0.6); ABS Lymphocytes 1.4 10^3/ul (1.0-4.8); ABS Monocytes 0.6 10^3/ul (0-0.8); ABS Neutrophils 6.4 10^3/ul (1.5-7.7); ABS Nucleated RBC 0 10^3/ul; Eosinophil % 0 %; Hematocrit 31 % (33-41); Lymphocyte % 16.7 %; Mean Corpuscular HGB Conc 33 g/dL (31-36); Mean Corpuscular Hemoglobin 29 pg (27-31); Mean Corpuscular Volume 89 fL (80-97); Nucleated Red Blood Cells % 0.1; Platelet Count 82 10^3/uL (150-450); Red Blood Count 3.45 10^6 /uL (3.70-4.87); Red Cell Distribution Width 18 % (10.5-15); White Blood Count 8.4 10^3/uL (3.5-10.8)
[2019-01-28 07:31] LABS: Albumin 2.8 g/dL (3.2-5.2); Albumin/Globulin Ratio 1.3 (1-3); BUN/Creatinine Ratio 23.3 (8-20); EGFR African American 51.4 (>60); EGFR Non-African American 42.5 (>60); Globulin 2.1 g/dL (2-4); Magnesium 2.4 mg/dL (1.9-2.7); Potassium 3.8 mmol/L (3.5-5.0); Total Bilirubin 0.5 mg/dL (0.2-1.0); Total Protein 4.9 g/dL (6.4-8.9)
[2019-01-28] MEDS: Metoprolol Succinate XL TAB* 25 MG PO SCH (11:19)
[2019-01-28] MEDS: Pantoprazole TAB * 40 MG TAB PO SCH (11:19)
[2019-01-28] MEDS: Docusate CAP* 100 MG PO SCH ×2 (11:20→20:09)
--- NOTE | 2019-01-28 12:03 | PN ---
Progress Note - Progress Note Date of Service: 01/28/19 SOAP: Subjective: Continues to improve day by day. Some mild GI discomfort last night. Ate cream of wheat for breakfast. She is feels pretty confident that she will be successful at home, but her close friend and health care proxy expresses concerns regarding her safety and feels that she would be benefit from [facility]. Objective: [ Acetaminophen (Tylenol Tab*) 650 mg PO Q6H PRN PRN Reason: FEVER/PAIN Hydrocodone Bitart/Acetaminophen ([place] 5-325 Tab*) 1 tab PO Q4H PRN PRN Reason: PAIN Docusate Sodium (Colace Cap*) 100 mg PO BID [facility] Last Admin: 01/28/19 11:20 Dose: Not Given Enoxaparin Sodium (Lovenox(*)) 30 mg SUBCUT Q24H [facility] Last Admin: 01/27/19 17:57 Dose: 30 mg Levothyroxine Sodium (Synthroid Tab*) 50 mcg PO 0600 [facility] Last Admin: 01/28/19 05:59 Dose: 50 mcg Metoprolol Succinate (Toprol Xl Tab*) 25 mg PO QAM [facility] Last Admin: 01/28/19 11:19 Dose: 25 mg Ondansetron HCl (Zofran Inj*) 4 mg IV Q6H PRN PRN Reason: NAUSEA Pantoprazole Sodium (Protonix Tab*) 40 mg PO DAILY [facility] Last Admin: 01/28/19 11:19 Dose: 40 mg Polyethyl Glycol/Propylene Glycol (Lubricant Eye Drops) 2 drop BOTH EYES BID [facility] Last Admin: 01/27/19 21:01 Dose: Not Given Senna (Senokot Tab*) 1 tab PO BEDTIME [facility] Last Admin: 01/27/19 20:38 Dose: Not Given Laboratory Results - last 24 hr 01/28/19 01/28/19 06:44 06:44 WBC 8.4 RBC 3.45 L Hgb 10.0 L Hct 31 L MCV 89 MCH 29 MCHC 33 RDW 18 H Plt Count 82 L MPV 10.0 Neut % (Auto) 76.1 Lymph % (Auto) 16.7 Boundary % (Auto) 7.1 Eos % (Auto) 0 Baso % (Auto) 0.1 Absolute Neuts (auto) 6.4 Absolute Lymphs (auto) 1.4 Absolute Monos (auto) 0.6 Absolute Eos (auto) 0 Absolute Basos (auto) 0 Absolute Nucleated RBC 0 Nucleated RBC % 0.1 Sodium 141 Potassium 3.8 Chloride 113 H Carbon Dioxide 20 L Anion Gap 8 BUN 28 H Creatinine 1.20 H Est GFR ( Amer) 51.4 Est GFR (Non-Af Amer) 42.5 BUN/Creatinine Ratio 23.3 H Glucose 141 H Calcium 8.0 L Magnesium 2.4 Total Bilirubin 0.50 AST 67 H ALT 241 H Alkaline Phosphatase 124 H Total Protein 4.9 L Albumin 2.8 L Globulin 2.1 Albumin/Globulin Ratio 1.3 Vital Signs: Temp Pulse Resp BP Pulse Ox 97.6 F 58 16 126/54 100 01/28/19 11:10 01/28/19 11:10 01/28/19 11:10 01/28/19 11:10 01/28/19 11:10 [Exam: Gen: Frail appearing 88 yo female in NAD HEENT: L eye opaque, MMM CV: RRR, no m/r/g Resp: CTA, no w/c/r Abd: soft, nonTTP Ext: no edema Skin: no rashes] Assessment: [88 yo female with RCC who recently started pazopinib and developed severe fatigue and was admitted with ALLYSSA and transaminitis. Slow improvement but she remains weak and with poor appetite. Imaging with large renal mass and little metastatic disease. Unclear if current symptoms are secondary to her cancer or SE of Pazopanib. She has refused surgery in the past but it would be the most effective way to treat her cancer. ] Plan: [1. Anorexia. improving - Slow fall in LFTs - CT A/P with contrast was negative for occult liver disease, no change in renal tumor and associated LAD - Cont PPI - some inflammatory change in the gastric antrum on CT as well 2. RCC. Unclear if PS will improve to re-challenge, next therapy would be Nivolumab 3. ALLYSSA with stage III CKD - Cr now back to baseline and stable off of IVF Disposition: Goal for dc home, but question the feasibility and safety of this after speaking with her friend/HCP. Recommended [facility]. She will do stairs again with PT tomorrow to assess her ability to get in to her home. Told patient that if she is unable to complete stairs tomorrow the recommendation will be for rehab. She is aware of the recommendation, but reluctant to agree with that plan.
[2019-01-28] MEDS: PTO:Polyethyl Glycol/Propylene Gly OPHTH.SOLN BOTH EYES SCH ×2 (18:30→20:10)
[2019-01-28] MEDS: Enoxaparin(*) 30 MG/0.3 ML SYR SUBCUT SCH (18:35)
[2019-01-28] MEDS: Senna TAB PO SCH (20:19)
[2019-01-29] MEDS: Levothyroxine TAB* 50 MCG TAB PO SCH (05:30)
[2019-01-29] MEDS: Metoprolol Succinate XL TAB* 25 MG PO SCH (10:02)
[2019-01-29] MEDS: PTO:Polyethyl Glycol/Propylene Gly OPHTH.SOLN BOTH EYES SCH ×2 (10:03→20:57)
[2019-01-29] MEDS: Docusate CAP* 100 MG PO SCH ×2 (11:28→20:58)
[2019-01-29] MEDS: Pantoprazole TAB * 40 MG TAB PO SCH (11:28)
[2019-01-29] MEDS: Enoxaparin(*) 30 MG/0.3 ML SYR SUBCUT SCH (17:26)
[2019-01-29] MEDS: Senna TAB PO SCH (20:58)
[2019-01-30] MEDS: Levothyroxine TAB* 50 MCG TAB PO SCH (05:29)
[2019-01-30 07:19] LABS: Albumin 2.7 g/dL (3.2-5.2); Albumin/Globulin Ratio 1.4 (1-3); BUN/Creatinine Ratio 19.5 (8-20); Calcium 7.9 mg/dL (8.6-10.3); EGFR African American 55.1 (>60); EGFR Non-African American 45.5 (>60); Potassium 3.6 mmol/L (3.5-5.0); Total Bilirubin 0.5 mg/dL (0.2-1.0); Total Protein 4.7 g/dL (6.4-8.9)
[2019-01-30] MEDS: PTO:Polyethyl Glycol/Propylene Gly OPHTH.SOLN BOTH EYES SCH ×2 (09:32→19:57)
[2019-01-30] MEDS: Metoprolol Succinate XL TAB* 25 MG PO SCH (09:33)
[2019-01-30] MEDS: Docusate CAP* 100 MG PO SCH ×2 (09:33→19:57)
[2019-01-30] MEDS: Pantoprazole TAB * 40 MG TAB PO SCH (09:33)
--- NOTE | 2019-01-30 09:44 | PN ---
Progress Note - Progress Note Date of Service: 01/30/19 SOAP: Subjective: [Cont to improve. Appetite is picking up. Ate a salad and chocolate cake for dinner, and sausage for breakfast. No complaints today. She is now agreeable to [facility] at [facility].] Objective: [ Laboratory Results - last 24 hr 01/30/19 06:42 Sodium 138 Potassium 3.6 Chloride 109 Carbon Dioxide 21 L Anion Gap 8 BUN 22 Creatinine 1.13 H Est GFR ( Amer) 55.1 Est GFR (Non-Af Amer) 45.5 BUN/Creatinine Ratio 19.5 Glucose 93 Calcium 7.9 L Total Bilirubin 0.50 AST 155 H ALT 236 H Alkaline Phosphatase 119 H Total Protein 4.7 L Albumin 2.7 L Globulin 2.0 Albumin/Globulin Ratio 1.4 Acetaminophen (Tylenol Tab*) 650 mg PO Q6H PRN PRN Reason: FEVER/PAIN Docusate Sodium (Colace Cap*) 100 mg PO BID [facility] Last Admin: 01/30/19 09:33 Dose: Not Given Enoxaparin Sodium (Lovenox(*)) 30 mg SUBCUT Q24H [facility] Last Admin: 01/29/19 17:26 Dose: 30 mg Levothyroxine Sodium (Synthroid Tab*) 50 mcg PO 0600 [facility] Last Admin: 01/30/19 05:29 Dose: 50 mcg Metoprolol Succinate (Toprol Xl Tab*) 25 mg PO QAM [facility] Last Admin: 01/30/19 09:33 Dose: 25 mg Ondansetron HCl (Zofran Inj*) 4 mg IV Q6H PRN PRN Reason: NAUSEA Pantoprazole Sodium (Protonix Tab*) 40 mg PO DAILY [facility] Last Admin: 01/30/19 09:33 Dose: 40 mg Polyethyl Glycol/Propylene Glycol (Lubricant Eye Drops) 2 drop BOTH EYES BID [facility] Last Admin: 01/30/19 09:32 Dose: 2 drop Senna (Senokot Tab*) 1 tab PO BEDTIME [facility] Last Admin: 01/29/19 20:58 Dose: Not Given Vital Signs: Temp Pulse Resp BP Pulse Ox 97.6 F 68 12 137/47 96 01/30/19 07:18 01/30/19 08:53 01/30/19 08:00 01/30/19 07:18 01/30/19 07:18 [Exam: Gen: Frail appearing 88 yo female in NAD HEENT: L eye opaque, MMM CV: RRR, no m/r/g Resp: CTA, no w/c/r Abd: soft, nonTTP Ext: trace LE edema Skin: no rashes] Assessment: [88 yo female with RCC who recently started pazopinib and developed severe fatigue and was admitted with ALLYSSA and transaminitis. Slow improvement but she remains weak and with poor appetite. Imaging with large renal mass and little metastatic disease. Unclear if current symptoms are secondary to her cancer or SE of Pazopanib. She has refused surgery in the past but it would be the most effective way to treat her cancer. ] Plan: [1. Anorexia. improving - transaminases cont to improve slightly, but have not normalized completely - CT A/P with contrast was negative for occult liver disease, no change in renal tumor and associated LAD - Cont PPI - some inflammatory change in the gastric antrum on CT as well 2. RCC. Unclear if PS will improve to re-challenge, next therapy would be Nivolumab 3. ALLYSSA with stage III CKD - Cr now back to baseline and stable off of IVF Disposition: [facility], pt prefers [facility]. CM involved. Hopeful for dc tomorrow
[2019-01-30] MEDS: Enoxaparin(*) 30 MG/0.3 ML SYR SUBCUT SCH (17:26)
[2019-01-30] MEDS: Senna TAB PO SCH (19:57)
[2019-01-31] MEDS: Levothyroxine TAB* 50 MCG TAB PO SCH (05:46)
[2019-01-31 08:44] VITALS: BP 130/49
[2019-01-31] MEDS: Pantoprazole TAB * 40 MG TAB PO SCH (08:45)
[2019-01-31] MEDS: Metoprolol Succinate XL TAB* 25 MG PO SCH (08:45)
[2019-01-31] MEDS: PTO:Polyethyl Glycol/Propylene Gly OPHTH.SOLN BOTH EYES SCH (08:45)
[2019-01-31] MEDS: Docusate CAP* 100 MG PO SCH (08:46)
--- NOTE | 2019-01-31 11:40 | DS ---
CC: Dr. Luiza Casarez; Dr. Varela* DATE OF ADMISSION: 01/21/2019. DATE OF DISCHARGE: 01/31/2019. PRIMARY CARE PHYSICIAN: Dr. Luiza Casarez. PRIMARY ONCOLOGIST AND ATTENDING PHYSICIAN: Dr. Javed Varela* (dictated by CHANTELL Singh). DISCHARGING PROVIDER: CHANTELL Singh. PRIMARY DISCHARGE DIAGNOSES: 1. Acute kidney injury secondary to hypovolemia secondary to anorexia. 2. Transaminitis secondary to Pazopanib, improving. 3. Renal cell carcinoma. DISCHARGE MEDICATIONS: 1. Levothyroxine 50 mcg p.o. daily. 2. Metoprolol Succinate 50 mg p.o. daily. 3. Systane eye drops one drop in both eyes daily as needed. 4. Protonix 40 mg p.o. daily. 5. Senna one tablet p.o. at bedtime. HOSPITAL IMAGIN. Renal ultrasound, 01/21/2019, demonstrates large right renal cell carcinoma with worsening upper pole obstruction and a normal appearing left kidney. 2. CT abdomen and pelvis without contrast, 01/21/2019, demonstrates mildly enlarged right renal mass consistent with known renal cell carcinoma causing interval increased obstruction of the right renal collecting system and some distal colonic diverticulosis without diverticulitis. 3. CT abdomen and pelvis with contrast, 01/27/2019, demonstrates small bilateral pleural effusions which are new. Known right-sided renal mass, hepatic steatosis without evidence for metastatic disease, as well as mild thickening of the wall of the gastric antrum which is likely inflammatory, but nonspecific, as well as small amount of ascites. HOSPITAL COURSE: This is an 88-year-old female under the care of Dr. Varela for renal cell carcinoma who was recently started on Pazopanib for treatment as she declined surgical resection. She was seen in the Oncology Clinic approximately two weeks after starting the medication and had reported some fatigue and anorexia, but symptoms were relatively mild and labs were within normal limits at that time. Plan was for follow-up in an additional two weeks. Over that period of time, the patient reported progressive anorexia and presented to the emergency department at the prompting of her friends and family members. She had reported that she had discontinued the Pazopanib on her own with her last dose being 01/12/2019. She denied any abdominal pain and only one episode of vomiting and no fevers or diarrhea. Her initial labs demonstrated a relatively normal CBC with a white blood cell count of 9.7, hemoglobin of 15, and platelets of 109,000. Her metabolic panel, however, demonstrated a potassium of 5.2, BUN of 117, creatinine 3.07, initial lactic acid of 2.8, a normal total bilirubin, but transaminase greater than ten times normal with an AST of 546, ALT 993, and alk phos of 120. The patient was subsequently admitted and started on IV fluids. The thought process was that the majority of her symptoms and metabolic derangement were secondary to her poor p.o. intake which is a side effect of the Pazopanib. The transaminitis was likely a medication effect and the Pazopanib was held. The patient received supportive care measures during her hospitalization and her appetite slowly improved. She worked with Physical Therapy throughout her hospital stay, but was not felt to be safe for discharge home to be living independently. DISPOSITION AND FOLLOW-UP PLAN: The patient is being discharged to subacute rehab at [facility]. Will hold the Pazopanib at this time and reassess her interest in resuming therapy with an alternate agent. She will see Dr. Varela in follow-up on February 12. Lab work will be repeated at that time. At the time of discharge, her creatinine has returned to baseline at 1.13 and her transaminases are still elevated, but greatly improved. CHANTELL SINGH [id number]/[facility] #: [id number] TYRESE
== END 2019-01-31 12:35 | disposition home health service (06) | DRG 469 ==
LOC: ED 15:11 → MED 17:47 → OBSVTOIN 01-22 16:39
PROVIDERS: ADMIT Internal Medicine; ATTEND Internal Medicine Hematology & Oncology
DX: N17.9 Acute kidney failure, unspecified (principal); C64.9 Malignant neoplasm of unspecified kidney, except renal pelvis; Z68.1 Body mass index [BMI] 19.9 or less, adult; R63.0 Anorexia; E03.9 Hypothyroidism, unspecified; E78.5 Hyperlipidemia, unspecified; E78.00 Pure hypercholesterolemia, unspecified; M19.90 Unspecified osteoarthritis, unspecified site; E86.0 Dehydration; R54 Age-related physical debility; R74.0 Nonspecific elevation of levels of transaminase and lactic acid dehydrogenase [LDH]; N18.3 Chronic kidney disease, stage 3 (moderate); I12.9 Hypertensive chronic kidney disease with stage 1 through stage 4 chronic kidney disease, or unspecified chronic kidney disease; E86.1 Hypovolemia; K76.0 Fatty (change of) liver, not elsewhere classified; T50.995A Adverse effect of other drugs, medicaments and biological substances, initial encounter; K57.30 Diverticulosis of large intestine without perforation or abscess without bleeding; Z90.710 Acquired absence of both cervix and uterus; Y92.9 Unspecified place or not applicable; Z90.01 Acquired absence of eye; Z91.041 Radiographic dye allergy status; Z82.49 Family history of ischemic heart disease and other diseases of the circulatory system
CPT/HCPCS: 36415; 74176; 74177; 76775; 80053; 81003; 81015; 83605; 83735; 84443; 84484; 85025; 86140; 87040; 87086; 93005; 99232; 99239; 99284; A9270-GY; G8978-GP-CJ; G8979-GP-CI; J0780; J1650; J2405; J3475; J7512; Q9967